=== PATIENT | female | born 1945 | race Hispanic/Latino ===

== ENCOUNTER 2017-07-07 21:46 | Observation (INO) | payer MEDICARE ==
[~2017-07-07] VITALS: Ht 157.5 cm; Wt 68.0 kg
--- OUTSIDE RECORDS SUMMARY | 2017-07-07 21:48 | XMS REPORT ---
Author Author Admin, [place] Organization [facility] Address [address] [place] [address] Phone Allergies, Adverse Reactions, Alerts Allergy Name Reaction Description Start Date Severity Status Provider No Known Allergies Shae Haas Conditions or Problems Problem Name Problem Code Onset Date Status Entry Date Provider Comment Standard Description Annotate High blood pressure 401.9 Active Jyoti Jj MD Unspecified essential hypertension Incontinence, urine 788.30 Active Jyoti Jj MD Urinary incontinence, unspecified Vision changes 368.9 Active Jyoti Jj MD Unspecified visual disturbance Abdominal pain, right lower quadrant 789.03 Active Jyoti Jj MD Abdominal pain, right lower quadrant Vaginal atrophy 627.3 Active Jyoti Jj MD Postmenopausal atrophic vaginitis Cyclosporiasis 007.5 Active Mykel Herrera MD Cyclosporiasis Hx of colon surgery V45.89 Active Jyoti Jj MD Other postsurgical status Hernia of anterior abdominal wall 553.20 Active Arron Chang MD Unspecified ventral hernia without mention of obstruction or gangrene BMI 50.0-59.9 Active Arron Chang MD Body Mass Index 50.0-59.9, adult Conjunctivitis, chronic 372.10 Active Arron Chang MD Chronic conjunctivitis, unspecified medial aspect with swelling of conjunctiva Glaucoma 365.9 Active Ab Barry MD Unspecified glaucoma Breast pain, bilateral 611.71 Active Ab Barry MD Mastodynia Cellulitis, breast 611.0 Active Ab Barry MD Inflammatory disease of breast Left, secondary to surgery Hx of removal of breast implants V52.4 Active Ab Barry MD Fitting and adjustment of breast prosthesis and implant May 2015 in [place] Revision of breast implants V53.99 Active Ab Barry MD Fitting and adjustment of other device January 28 2015 in [place] Blurred vision 368.8 Active Ab Barry MD Other specified visual disturbances Screening mammogram V76.12 Active Ab Barry MD Other screening mammogram Overweight 278.02 Active Arron Chang MD Overweight Vaccine against flu/influenza V04.8 Active Arron Chang MD Need for prophylactic vaccination and inoculation against other viral diseases Conjunctivitis ICD-372.30 Inactive Jyoti Jj MD Need for prophylactic vaccination with unspecified combined vaccine V06.9 Inactive Jessica Paul [employer] B[employer]ER Need for prophylactic vaccination with unspecified combined vaccine Need for prophylactic vaccination with unspecified combined vaccine ICD-V06.9 Inactive Jessica Paul [employer]ER UTI (urinary tract infection) ICD-599.0 Inactive Jyoti Jj MD DIARRHEA ICD-787.91 Inactive Jyoti Jj MD Traveler's diarrhea ICD-009.2 Inactive Jyoti Jj MD Conjunctivitis 372.30 Resolved Jyoti Jj MD Conjunctivitis, unspecified UTI (urinary tract infection) 599.0 Resolved Jyoti Jj MD Urinary tract infection, site not specified DIARRHEA 787.91 Resolved Jyoti Jj MD Diarrhea Traveler's diarrhea 009.2 Resolved Jyoti Jj MD Infectious diarrhea Medication List Medication Instructions Start Date Stop Date Generic Name NDC Status Provider Patient Instruction POLYTRIM 06280-0.1 UNIT/ML-% SOLN 1-2 drops in affected eye every 4 hours for 7 to 10 days POLYTRIM 81266-1.1 UNIT/ML-% SOLN 315898 POLYMYXIN B-TRIMETHOPRIM Inactive PREMARIN 0.625 MG/GM CREA 1 gm PV nightly at bedtime 3 times per week PREMARIN 0.625 MG/GM CREA ESTROGENS, CONJUGATED VAGINAL Inactive AUGMENTIN 500-125 MG TABS 1 by mouth twice a day AUGMENTIN 500-125 MG TABS 694934 AMOXICILLIN-POT CLAVULANATE Inactive MONISTAT 3 COMBO PACK MARCELLA 200 & 2 MG-% (9GM) VAG KIT use as directed MONISTAT 3 COMBO PACK MARCELLA 200 & 2 MG-% (9GM) VAG KIT MICONAZOLE NITRATE Inactive BACTRIM DS 800-160 MG TABS 1 tab by mouth twice a day BACTRIM DS 800-160 MG TABS 820774 TRIMETHOPRIM-SULFAMETHOXAZOLE Inactive ZOFRAN ODT 4 MG TBDP Take one tablet every 6 hrs as needed for nausea ZOFRAN ODT 4 MG TBDP 439839 ONDANSETRON Inactive BENTYL 10 MG CAPS 1 by mouth 4 times a day as needed BENTYL 10 MG CAPS 117714 DICYCLOMINE HCL Inactive CIPRO 500 MG TABS 1 by mouth twice a day for 3 days CIPRO 500 MG TABS 103998 CIPROFLOXACIN HCL Inactive BACTRIM DS 800-160 MG TABS 1 tab by mouth twice a day BACTRIM DS 800-160 MG TABS 121476 TRIMETHOPRIM-SULFAMETHOXAZOLE Inactive CLEOCIN 300 MG ORAL CAPS 1 tab By Mouth Every 6 hour for 14 days for breast infection CLEOCIN 300 MG ORAL CAPS 327083 CLINDAMYCIN HCL Inactive POLYTRIM 03059-8.1 UNIT/ML-% SOLN 1-2 drops in affected eye every 4 hours for 7 to 10 days POLYMYXIN B-TRIMETHOPRIM 14532668099 No Longer Active Jyoti Jj MD Active PREMARIN 0.625 MG/GM CREA 1 gm PV nightly at bedtime 3 times per week ESTROGENS, CONJUGATED VAGINAL 90109479194 No Longer Active Jyoti Jj MD Active AUGMENTIN 500-125 MG TABS 1 by mouth twice a day AMOXICILLIN-POT CLAVULANATE 98996028829 No Longer Active Jyoti Jj MD Active MONISTAT 3 COMBO PACK MARCELLA 200 & 2 MG-% (9GM) VAG KIT use as directed MICONAZOLE NITRATE 41412758829 No Longer Active Jyoti Jj MD Active BACTRIM DS 800-160 MG TABS 1 tab by mouth twice a day TRIMETHOPRIM-SULFAMETHOXAZOLE 92651965643 No Longer Active Annalee Wise MD Active ZOFRAN ODT 4 MG TBDP Take one tablet every 6 hrs as needed for nausea ONDANSETRON 32688127720 No Longer Active Jyoti Jj MD Active BENTYL 10 MG CAPS 1 by mouth 4 times a day as needed DICYCLOMINE HCL 98399297739 No Longer Active Jyoti Jj MD Active CIPRO 500 MG TABS 1 by mouth twice a day for 3 days CIPROFLOXACIN HCL 35985475989 No Longer Active Jyoti Jj MD Active BACTRIM DS 800-160 MG TABS 1 tab by mouth twice a day TRIMETHOPRIM-SULFAMETHOXAZOLE 83392092025 No Longer Active Toshia Ramos MD Active CLEOCIN 300 MG ORAL CAPS 1 tab By Mouth Every 6 hour for 14 days for breast infection CLINDAMYCIN HCL 48376211065 No Longer Active Toshia Ramos MD Active Immunizations Vaccine Administration Date Value Standard Description influenza immunization (Flu Vax) has been administered given influenza virus vaccine, unspecified formulation PEDIATRIC PNEUMOCOCCAL VACCINE ([id number]) #1 given elsewhere pneumococcal conjugate vaccine, 13 valent hepatitis A immunization #1 given hepatitis A vaccine, unspecified formulation MMR (measles, mumps, rubella) virus immunization #1 given influenza immunization (Flu Vax) has been administered given influenza virus vaccine, unspecified formulation Vital Signs Date Name Value Unit Range Description blood pressure, diastolic 92 mm[Hg] BP lua blood pressure, systolic 166 mm[Hg] BP sys height E&M 62 [in_us] Bdy height pulse rate E&M 70 /min Heart rate respiratory rate E&M 16 /min Resp rate temperature E&M 98.3 [degF] Body temperature weight E&M 163.60 [lb_av] Weight Measured blood pressure, diastolic 90 mm[Hg] BP lua blood pressure, systolic 168 mm[Hg] BP sys height E&M 62 [in_us] Bdy height pulse rate E&M 65 /min Heart rate respiratory rate E&M 19 /min Resp rate temperature E&M 98.4 [degF] Body temperature weight E&M 162.60 [lb_av] Weight Measured blood pressure, diastolic 75 mm[Hg] BP lua blood pressure, systolic 126 mm[Hg] BP sys height E&M 62 [in_us] Bdy height pulse rate E&M 65 /min Heart rate respiratory rate E&M 18 /min Resp rate temperature E&M 97.0 [degF] Body temperature weight E&M 148.80 [lb_av] Weight Measured blood pressure, diastolic 73 mm[Hg] BP lua blood pressure, systolic 116 mm[Hg] BP sys height E&M 62 [in_us] Bdy height pulse rate E&M 67 /min Heart rate respiratory rate E&M 17 /min Resp rate temperature E&M 98.0 [degF] Body temperature weight E&M 144.80 [lb_av] Weight Measured Diagnostic Results Date Name Value Unit Range Description Office Visit: Adult Followup///# 5_Ginoler - Urinalysis nitrite, urine, semiquantitative negative urobilinogen, urine, semiquantitative (dipstick) negative Lab Report: URINALYSIS, COMPLETE W/REFLEX TO CULTURE, REFLEXIVE URINE CU ... - Urinalysis specific gravity, urine 1.021 1.001-1.035 pH, urine, semiquantitative 5.5 5.0-8.0 Office Visit: Adult Followup///# 5_Ruben - Urinalysis bilirubin, urine negative Lab Report: URINALYSIS, COMPLETE W/REFLEX TO CULTURE, REFLEXIVE URINE CU ... - Urinalysis urine culture Greater than 100,000 CFU/mL of Escherichia coli WBC urine on microscopy 40-60 /HPF {Cells}/[HPF] < OR=5 hyaline casts, urine 0-1 /[LPF] NONE SEEN Office Visit: Adult Followup///# 5_Ruben - Urinalysis leukocyte esterase, urine, by dipstick negative appearance, urine clear Lab Report: URINALYSIS, COMPLETE W/REFLEX TO CULTURE, REFLEXIVE URINE CU ... - Chemistry RBC, Urine 0-2 /HPF /[HPF] < OR=2 Office Visit: Adult Followup///# 5_Ruben - Urinalysis protein, urine, semiquantitative (dipstick) negative blood in urine (hemoglobin) by dipstick negative glucose, urine, semiquantitative negative Lab Report: URINALYSIS, COMPLETE W/REFLEX TO CULTURE, REFLEXIVE URINE CU ... - Chemistry occult blood, stool (E&M) 1+ NEGATIVE Lab Report: URINALYSIS, COMPLETE W/REFLEX TO CULTURE, REFLEXIVE URINE CU ... - Urinalysis bacteria, urine microscopy MODERATE NONE SEEN Lab Report: URINALYSIS, COMPLETE W/REFLEX TO CULTURE, REFLEXIVE URINE CU ... 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 Est Patient Exp Problem - 13324 Kirsten Miranda MD CPT -29372 [facility] 15:33:34 CDT Est Patient Exp Problem - 49751 Mykel Herrera MD CPT-11777 [facility] 17:13:04 CDT Est Patient Exp Problem - 11053 Jyoti Jj MD CPT-43334 [facility] 11:26:32 CDT Est Patient Exp Problem - 51568 Ab Barry MD CPT-75477 [facility] 11:16:28 CDT Est Patient Exp Problem - 59629 Arron Chang MD CPT- 21688 [facility] 14:30:05 CDT Est Patient Exp Problem - 82438 Arron Chang MD CPT- 95150 [facility] 15:10:34 CDT Est Patient Exp Problem - 58253 Ab Barry MD CPT-04444 [facility] 15:43:57 CDT Est Patient Exp Problem - 90914 Ab Barry MD CPT-58207 [facility] 09:41:48 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 DIGGER Est Patient Exp Problem - 33146 Ab Barry MD CPT-40989 [facility] 07:24:40 TRENCH DIGGER Est Patient Exp Problem - 35170 Ab Barry MD CPT-19181 [facility] 15:47:56 CDT Est Patient Exp Problem - 45764 Ab Barry MD CPT-87260 [facility] 16:49:51 CDT Est Patient Exp Problem - 44846 Arron Chang MD CPT- 60568 [facility] Procedures Code Procedure Name Date Entry Date Standard Description CPT-89268 Urinalysis - Dip only - In House 10:57:08 CDT CPT-77090 MEASLES & RUBELLA VIRUS VACCINE LIVE SUBQ 09:49:07 TRENCH DIGGER CPT-75487 Hepatitis A - Adult 09:49:07 TRENCH DIGGER CPT-64388 Admin of Vaccine - Injection - Each Add'l 09:49:07 TRENCH DIGGER CPT-68175 Admin of Vaccine - Injection - 1 09:49:07 TRENCH DIGGER CPT-86099 Influenza - Adult - Injection 16:49:51 CDT
[2017-07-07 22:14] LABS: BASOPHILS # (AUTO) 0.1 (0.0-0.1); BASOPHILS % 0.6 % (0.0-1.0); EOSINOPHILS # (AUTO) 0.2 (0.0-0.4); EOSINOPHILS % 2.7 % (0.0-6.0); HEMATOCRIT 41.8 % (34.2-44.1); HEMOGLOBIN 14.3 g/dL (12.0-16.0); LYMPHOCYTES # (AUTO) 2.8 (1.0-3.2); MEAN CORPUSCULAR HEMOGLOBIN 30.9 pg (28-32); MEAN CORPUSCULAR HGB CONC 34.2 g/dL (31-35); MEAN CORPUSCULAR VOLUME 90.3 fL (81-99); MONOCYTES # (AUTO) 0.6 (0.2-0.8); MONOCYTES % 7.5 % (4.4-11.3); NEUTROPHILS # (AUTO) 4.1 (2.1-6.9); NEUTROPHILS % 52.9 % (38.7-80.0); PLATELET COUNT 269 x10e3/uL (140-360); RED BLOOD COUNT 4.63 x10e6/uL (3.6-5.1); RED CELL DISTRIBUTION WIDTH 12.3 % (11.7-14.4)
[2017-07-07] MEDS ORDERED: NITROGLYCERIN 2% OINT 1 GM PKT TOP ONE (22:15)
[2017-07-07] MEDS ORDERED: ASPIRIN 81 MG CHEW TAB PO ONE (22:15)
[2017-07-07 22:18] LABS: INR 0.99; PROTHROMBIN TIME 12.3 seconds (11.9-14.5)
[2017-07-07 22:19] LABS: PARTIAL THROMBOPLASTIN TIME 29.3 seconds (23.8-35.5)
[2017-07-07 22:29] LABS: ALANINE AMINOTRANSFERASE 46 IU/L (0-55); ALBUMIN 4.2 g/dL (3.5-5.0); ALBUMIN/GLOBULIN RATIO 1.2 (0.8-2.0); ALKALINE PHOSPHATASE 89 IU/L (40-150); ANION GAP 15.1 mmol/L (8-16); BLOOD UREA NITROGEN 18 mg/dL (7-26); BUN/CREATININE RATIO 18 (6-25); CALCIUM 9.7 mg/dL (8.4-10.2); CARBON DIOXIDE 25 mmol/L (22-29); CHLORIDE 100 mmol/L (98-107); CREATINE KINASE 54 IU/L (29-168); CREATININE, SERUM 0.98 mg/dL (0.57-1.11); EST GLOMERULAR FILTRATION RATE 56 ML/MIN (60-); GLUCOSE 321 mg/dL (74-118); POTASSIUM 4.1 mmol/L (3.5-5.1); SODIUM 136 mmol/L (136-145)
--- NOTE | 2017-07-07 22:47 | Diagnostic Imaging Report ---
EXAMINATION: CHEST 2 VIEWS INDICATION: Chest pain. COMPARISON: None FINDINGS: TUBES and LINES: None. LUNGS: Lungs are well inflated. Lungs are clear. There is no evidence of pneumonia or pulmonary edema. PLEURA: No pleural effusion or pneumothorax. HEART AND MEDIASTINUM: The cardiomediastinal silhouette is unremarkable. BONES AND SOFT TISSUES: No acute osseous lesion. Soft tissues are unremarkable. UPPER ABDOMEN: No free air under the diaphragm. There are cholecystectomy clips. IMPRESSION: No acute thoracic abnormality. Signed by: Dr. Darrin Resendiz M.D. on 07/07/2017 10:44 PM
[2017-07-07 22:50] LABS: FREE THYROXINE INDEX 1.7331 (1.4-3.8); THYROID STIMULATING HORMONE 3.572 uIU/mL (0.350-4.940)
--- OUTSIDE RECORDS SUMMARY | 2017-07-07 23:28 | XMS REPORT ---
Author Author [facility] Address Unknown Phone Unavailable Care Team Providers Care Uniformer Name Role Phone LIZABETH DODD Unavailable Unavailable Problems This patient has no known problems. Allergies, Adverse Reactions, Alerts This patient has no known allergies or adverse reactions. Medications This patient has no known medications. Results Test Description Test Time Test Comments Text Results Atomic Results Result Comments CHEST 2 VIEWS [place] [address] Patient Name: FENG RODARTE MR #: [id number] : 1945 Age/Sex: 71/F Req # : [id number] Adm Physician: Ordered by: LIZABETH DODD MD Report # : [id number] Location: ER Room/Bed: Procedure: [id number] DX/CHEST 2 VIEWS Exam Date: 07/07/17 Exam Time : 0 REPORT STATUS: Signed EXAMINATION: CHEST 2 VIEWS INDICATION: Chest pain. COMPARISON: None FINDINGS: TUBES and LINES: None. LUNGS: Lungs are well inflated. Lungs are clear. There is no evidence of pneumonia or pulmonary edema. PLEURA: No pleural effusion or pneumothorax. HEART AND MEDIASTINUM: The cardiomediastinal silhouette is unremarkable. BONES AND SOFT TISSUES: No acute osseous lesion. Soft tissues are unremarkable. UPPER ABDOMEN: No free air under the diaphragm. There are cholecystectomy clips. IMPRESSION: No acute thoracic abnormality. Signed by: Dr. Darrin Resendiz M.D. on 07/07/2017 10:44 PM Dictated By: DARRIN ANDERSEN MD 45 Transcribed By: LILI on 07/07/172243 COPY TO: LIZABETH DODD MD
--- OUTSIDE RECORDS SUMMARY | 2017-07-07 23:28 | XMS REPORT ---
Author Author Admin, [place] Organization [facility] Address [address] [place] [address] Phone Allergies, Adverse Reactions, Alerts Allergy Name [...] breast prosthesis and implant May 2015 in [place] Revision of breast implants V53.99 Active Ab Barry MD Fitting and adjustment of other device January 28 2015 in [place] Blurred vision 368.8 Active Ab Barry MD [...] unspecified combined vaccine V06.9 Inactive Jessica Paul [employer] Need for prophylactic vaccination with unspecified combined vaccine Need for prophylactic vaccination with unspecified combined vaccine ICD-V06.9 Inactive Jessica Paul [employer] UTI (urinary tract infection) ICD-599.0 Inactive Jyoti [...] Name NDC Status Provider Patient Instruction POLYTRIM 97001-5.1 UNIT/ML-% SOLN 1-2 drops in affected eye every 4 hours for 7 to 10 days POLYTRIM 85278-6.1 UNIT/ML-% SOLN 069750 POLYMYXIN B-TRIMETHOPRIM Inactive PREMARIN 0.625 MG/GM CREA 1 gm PV nightly at bedtime 3 times per week PREMARIN 0.625 MG/GM CREA ESTROGENS, CONJUGATED VAGINAL Inactive AUGMENTIN 500-125 MG TABS 1 by mouth twice a day AUGMENTIN 500-125 MG TABS 989146 AMOXICILLIN-POT CLAVULANATE Inactive MONISTAT 3 COMBO PACK MARCELLA 200 & 2 MG-% (9GM) VAG KIT use as directed MONISTAT 3 COMBO PACK MARCELLA 200 & 2 MG-% (9GM) VAG KIT MICONAZOLE NITRATE Inactive BACTRIM DS 800-160 MG TABS 1 tab by mouth twice a day BACTRIM DS 800-160 MG TABS 432982 TRIMETHOPRIM-SULFAMETHOXAZOLE Inactive ZOFRAN ODT 4 MG TBDP Take one tablet every 6 hrs as needed for nausea ZOFRAN ODT 4 MG TBDP 143801 ONDANSETRON Inactive BENTYL 10 MG CAPS 1 by mouth 4 times a day as needed BENTYL 10 MG CAPS 552545 DICYCLOMINE HCL Inactive CIPRO 500 MG TABS 1 by mouth twice a day for 3 days CIPRO 500 MG TABS 804685 CIPROFLOXACIN HCL Inactive BACTRIM DS 800-160 MG TABS 1 tab by mouth twice a day BACTRIM DS 800-160 MG TABS 298338 TRIMETHOPRIM-SULFAMETHOXAZOLE Inactive CLEOCIN 300 MG ORAL CAPS 1 tab By Mouth Every 6 hour for 14 days for breast infection CLEOCIN 300 MG ORAL CAPS 164204 CLINDAMYCIN HCL Inactive POLYTRIM 80241-5.1 UNIT/ML-% SOLN 1-2 drops in affected eye every 4 hours for 7 to 10 days POLYMYXIN B-TRIMETHOPRIM 57700059179 No Longer Active Joyti Jj MD Active PREMARIN 0.625 MG/GM CREA 1 gm PV nightly at bedtime 3 times per week ESTROGENS, CONJUGATED VAGINAL 77824432409 No Longer Active Jyoti Jj MD Active AUGMENTIN 500-125 MG TABS 1 by mouth twice a day AMOXICILLIN-POT CLAVULANATE 39617431630 No Longer Active Jyoti Jj MD Active MONISTAT 3 COMBO PACK MARCELLA 200 & 2 MG-% (9GM) VAG KIT use as directed MICONAZOLE NITRATE 40749710833 No Longer Active Jyoti Jj MD Active BACTRIM DS 800-160 MG TABS 1 tab by mouth twice a day TRIMETHOPRIM-SULFAMETHOXAZOLE 21377641636 No Longer Active Annalee Wise MD Active ZOFRAN ODT 4 MG TBDP Take one tablet every 6 hrs as needed for nausea ONDANSETRON 81340480777 No Longer Active Jyoti Jj MD Active BENTYL 10 MG CAPS 1 by mouth 4 times a day as needed DICYCLOMINE HCL 86304879745 No Longer Active Jyoti Jj MD Active CIPRO 500 MG TABS 1 by mouth twice a day for 3 days CIPROFLOXACIN HCL 39451546979 No Longer Active Jyoti Jj MD Active BACTRIM DS 800-160 MG TABS 1 tab by mouth twice a day TRIMETHOPRIM-SULFAMETHOXAZOLE 29363996982 No Longer Active Toshia Ramos MD Active CLEOCIN 300 MG ORAL CAPS 1 tab By Mouth Every 6 hour for 14 days for breast infection CLINDAMYCIN HCL 42434638152 No Longer Active Toshia Ramos MD Active Immunizations Vaccine Administration Date Value Standard Description influenza immunization (Flu Vax) has been administered given influenza virus vaccine, unspecified formulation PEDIATRIC PNEUMOCOCCAL VACCINE ([id number]) #1 given elsewhere pneumococcal conjugate vaccine, 13 [...] Facility 13:05:49 CDT Est Patient Detailed - 28146 Jyoti Jj MD CPT- 39818 [facility] 11:45:37 CDT Est Patient Exp Problem - 11863 Jyoti Jj MD CPT-90284 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 15:33:34 CDT Est Patient Exp Problem - 99949 Mykel Herrera MD CPT-40798 [facility] 17:13:04 CDT Est Patient Exp Problem - 04112 Jyoti Jj MD CPT-97269 [facility] 11:26:32 CDT Est Patient Exp Problem - 38252 Ab Barry MD CPT-32129 [facility] 11:16:28 CDT Est Patient Exp Problem - 93996 Arron Chang MD CPT- 96229 [facility] 14:30:05 CDT Est Patient Exp Problem - 55501 Arron Chang MD CPT- 50853 [facility] 15:10:34 CDT Est Patient Exp Problem - 04957 Ab Barry MD CPT-68938 [facility] 15:43:57 CDT Est Patient Exp Problem - 06986 Ab Barry MD CPT-79931 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 15:47:56 CDT Est Patient Exp Problem - 03423 Ab Barry MD CPT-29598 [facility] 16:49:51 CDT Est Patient Exp Problem - 95327 Arron Chang MD CPT- 32713 [facility] Procedures Code Procedure Name Date Entry Date Standard Description CPT-80160 Urinalysis - Dip only - In House 10:57:08 CDT CPT-37715 MEASLES & RUBELLA VIRUS VACCINE LIVE SUBQ 09:49:07 HEAT PUMP INSTALLER CPT-10368 Hepatitis A - Adult 09:49:07 HEAT PUMP INSTALLER CPT-21753 Admin of Vaccine - Injection - Each Add'l 09:49:07 HEAT PUMP INSTALLER CPT-68469 Admin of Vaccine - Injection - 1 09:49:07 HEAT PUMP INSTALLER CPT-56778 Influenza - Adult - Injection 16:49:51 CDT
[2017-07-07] MEDS ORDERED: DEXTROSE 50% SYRINGE 50 ML IV PRN (23:30)
[2017-07-07] MEDS ORDERED: SODIUM CHLORIDE FLUSH 10 ML SYR INJ PRN (23:30)
[2017-07-07] MEDS ORDERED: ONDANSETRON HCL INJ 2 MG/ML VIAL IV PRN (23:30)
[2017-07-07 23:40] VITALS: BP 126/60
[2017-07-08] VITALS: BP 126/60
[2017-07-08 04:00] VITALS: BP 122/57
[2017-07-08] MEDS: NITROGLYCERIN 2% OINT 1 GM PKT TOP SCH ×4 (05:57→17:29)
[2017-07-08 06:38] LABS: BASOPHILS % 0.4 % (0.0-1.0); EOSINOPHILS # (AUTO) 0.2 (0.0-0.4); EOSINOPHILS % 2.4 % (0.0-6.0); HEMATOCRIT 37.2 % (34.2-44.1); HEMOGLOBIN 12.5 g/dL (12.0-16.0); LYMPHOCYTES # (AUTO) 1.8 (1.0-3.2); LYMPHOCYTES % 21.6 % (18.0-39.1); MEAN CORPUSCULAR HEMOGLOBIN 30.5 pg (28-32); MEAN CORPUSCULAR HGB CONC 33.6 g/dL (31-35); MEAN CORPUSCULAR VOLUME 90.7 fL (81-99); MONOCYTES # (AUTO) 0.6 (0.2-0.8); MONOCYTES % 7.1 % (4.4-11.3); NEUTROPHILS # (AUTO) 5.8 (2.1-6.9); NEUTROPHILS % 68.3 % (38.7-80.0); PLATELET COUNT 218 x10e3/uL (140-360); RED CELL DISTRIBUTION WIDTH 12.4 % (11.7-14.4)
[2017-07-08 07:35] LABS: ALANINE AMINOTRANSFERASE 38 IU/L (0-55); ALBUMIN 3.4 g/dL (3.5-5.0); ALBUMIN/GLOBULIN RATIO 1.1 (0.8-2.0); ALKALINE PHOSPHATASE 65 IU/L (40-150); ANION GAP 13.6 mmol/L (8-16); BLOOD UREA NITROGEN 15 mg/dL (7-26); BUN/CREATININE RATIO 19 (6-25); CALCIUM 8.8 mg/dL (8.4-10.2); CARBON DIOXIDE 24 mmol/L (22-29); CHLORIDE 104 mmol/L (98-107); CREATINE KINASE 35 IU/L (29-168); EST GLOMERULAR FILTRATION RATE > 60 ML/MIN (60-); GLUCOSE 329 mg/dL (74-118); POTASSIUM 4.6 mmol/L (3.5-5.1); SODIUM 137 mmol/L (136-145)
[2017-07-08] MEDS: INSULIN REGULAR, HUMAN 100 UNIT/1 ML 3ML VIAL SQ SCH ×3 (08:18→17:30)
[2017-07-08] MEDS ORDERED: ASPIRIN 81 MG ENTERIC COATED PO SCH (09:00)
[2017-07-08 09:32] VITALS: BP 141/77
[2017-07-08 11:40] VITALS: BP 132/60
--- NOTE | 2017-07-08 12:56 | Consultation ---
DATE OF CONSULTATION: July 08, 2017 CARDIOLOGY CONSULTATION REQUESTING PHYSICIAN: Dr. Tenzin Stone. REASON FOR CONSULTATION: Chest pain. HISTORY OF PRESENT ILLNESS: This is a 71-year-old woman with history of hypertension, newly diagnosed diabetes mellitus, and reported history of probably atrial fibrillation for which patient was previously on flecainide, who presents with complaints of chest pain. The patient reports she has been feeling off for the last 3 to 4 months with palpitations associated with shortness of breath off and on. Then 2 days ago, she noticed left arm burning that was 8/10 in severity. Yesterday, she developed chest pressure on the left side while walking. This was 10/10 in severity associated with shortness of breath. There was no nausea or diaphoresis. The pain lasted an hour and was improved with nitro patch. She denies fever, chills, cough, edema, orthopnea, or PND. REVIEW OF SYSTEMS: Negative except as per HPI. PAST MEDICAL HISTORY 1. Newly diagnosed diabetes mellitus. 2. Hypertension. 3. Reported prior history of tachycardia per patient's description likely atrial fibrillation, for which she was followed by Dr. Bear on flecainide. 4. GERD. 5. Diverticulitis. PAST SURGICAL HISTORY 1. section. 2. Cholecystectomy. 3. Hysterectomy. 4. Tonsillectomy. 5. Partial colectomy for diverticulitis. 6. Bladder lift. 7. Tummy tuck and breast reduction. ALLERGIES: NO KNOWN DRUG ALLERGIES. SOCIAL HISTORY: No tobacco or illicit drugs. She drinks alcohol occasionally. MEDICATIONS: Please see EMR. FAMILY HISTORY: Pertinent for brother who of a myocardial infarction at the age of 63. PHYSICAL EXAMINATION VITAL SIGNS: Temperature 97.1 degrees, pulse 82, respiratory rate 16, blood pressure 122/57, oxygen saturation 93% on room air. GENERAL: Well-developed, well-nourished woman, in no acute distress. HEENT: Normocephalic and atraumatic. Pupils equal. No scleral icterus. NECK: Supple. No thyromegaly or cervical lymphadenopathy. No carotid bruit. LUNGS: Clear to auscultation bilaterally. No wheezes or crackles. CARDIOVASCULAR: Normal rate, regular rhythm. No murmur. Normal S1 and S2. ABDOMEN: Soft, nontender. EXTREMITIES: No edema. NEURO: Nonfocal exam. LABS: WBC 8.5, hemoglobin 12.5, hematocrit 37.2, platelets 218. Sodium 137, potassium 4.6, chloride 104, CO2 of 24, BUN 16, creatinine 0.8. Hemoglobin A1c 11.9. Troponin 0.004. Chest x-ray, no acute thoracic abnormality. EKG, normal sinus rhythm, possible left atrial enlargement, inferior infarct age-indeterminate. Echocardiogram, normal LV size and systolic function with mild LVH. Left atrial enlargement was noted. IMPRESSION 1. Chest pain. 2. Suspected history of atrial fibrillation. 3. Hypertension. 4. Newly diagnosed diabetes mellitus. RECOMMENDATIONS: Trend cardiac enzymes. Given the patient's risk factors, we will proceed with ischemic evaluation with treadmill nuclear stress test. No atrial fibrillation has been noted on telemetry or on EKG. She will need to follow up as an outpatient for 2 weeks telemetry monitoring for further evaluation of this suspected atrial fibrillation. Given her risk factors, anticoagulation was discussed with the patient; however, she is reluctant to be placed on anticoagulation. As we have not confirmed AFib at this time, hold off for now. Thank you for this consult. We will continue to follow. Job#: [id number] MELINDA
[2017-07-08 13:29] LABS: CHOL/HDL RATIO 4.2 (3.0-3.6); CHOLESTEROL 150 MD/DL (0-199); HDL CHOLESTEROL 36 MG/DL (40-60); LDL CHOLESTEROL 98 MG/DL (60-130); TRIGLYCERIDES 79 MG/DL (0-149)
[2017-07-08 15:02] LABS: CREATINE KINASE 36 IU/L (29-168)
[2017-07-08 16:00] VITALS: BP 140/62
[2017-07-08] MEDS ORDERED: METFORMIN HCL 500 MG TAB PO SCH (17:00)
[2017-07-08] MEDS ORDERED: METFORMIN HCL500 MG PO (18:45)
[2017-07-08] MEDS ORDERED: JANUVIA100 MG PO (18:45)
--- NOTE | 2017-07-09 00:17 | Cardiology Report ---
DATE OF STUDY: July 08, 2017 PROCEDURE TITLE Rest stress single isotope SPECT imaging with exercise stress and gated SPECT imaging. INDICATIONS: Chest pain. PROCEDURE: The patient performed treadmill exercise using a Raji protocol, exercising for 8 minutes to stage III and completing estimated work load of 10.1 metabolic equivalents. The test was terminated due to fatigue. The heart rate was 94 beats per minute at baseline and increased to 138 beats per minute at peak exercise, which was 91% of maximum predicted heart rate. The rest blood pressure was 146/80 and increased to 160/60, which is a normal response. Patient did not develop any symptoms other than fatigue during the procedure. The resting electrocardiogram demonstrated normal sinus rhythm with nonspecific ST abnormalities. There were no ST segment changes consistent with myocardial ischemia. Myocardial perfusion imaging was performed at rest and the patient was injected with 33 millicuries of tetrofosmin. Exercise was continued for one minute. Gated post stress tomographic imaging was performed. FINDINGS: The overall quality of study is good. Attenuation artifact was absent. Left ventricular cavity is noted to be normal size on the rest and stress studies. SPECT images demonstrate homogenous tracer distribution throughout the myocardium. The gated SPECT imaging reveals normal myocardial thickening and wall motion. The left ventricular ejection fraction was calculated to be 66%. IMPRESSION: Normal clinical and hemodynamic exercise stress with nondiagnostic ECG exercise stress is due to resting EKG abnormalities. Myocardial perfusion imaging is normal. Overall, left ventricular systolic function was normal without regional wall motion abnormalities. Job#: [id number] GH cc: LUIS SARABIA MD MTDD
[2017-07-09] MEDS ORDERED: SITAGLIPTIN 100 MG TAB PO SCH (09:00)
== END 2017-07-08 19:14 | disposition home or self-care (01) ==
LOC: ER 21:46 → ERHOLD 23:25 → MED/SURG 23:34
DX: R07.89 Other chest pain (principal); E11.65 Type 2 diabetes mellitus with hyperglycemia; I10 Essential (primary) hypertension; K21.9 Gastro-esophageal reflux disease without esophagitis; K57.92 Diverticulitis of intestine, part unspecified, without perforation or abscess without bleeding; R00.0 Tachycardia, unspecified
CPT/HCPCS: 36415 ×2; 71046; 78452; 80053 ×2; 80061; 82550 ×2; 82553 ×2; 82948; 83036; 84436; 84443; 84479; 84484 ×2; 85025 ×2; 85379; 85610; 85730; 93005; 93017; 93306; 99284; A9502; G0378 ×2

== ENCOUNTER → 2017-08-08 | Outpatient (CLI) | payer MEDICARE ==
[~2017-08-08] MED LIST: JANUVIA100 MG PO; METFORMIN HCL500 MG PO
[2017-08-08 10:11] LABS: BASOPHILS % 0.8 % (0.0-1.0); EOSINOPHILS # (AUTO) 0.1 (0.0-0.4); EOSINOPHILS % 1.9 % (0.0-6.0); HEMATOCRIT 42.3 % (34.2-44.1); HEMOGLOBIN 14.2 g/dL (12.0-16.0); LYMPHOCYTES # (AUTO) 1.8 (1.0-3.2); LYMPHOCYTES % 34.4 % (18.0-39.1); MEAN CORPUSCULAR HEMOGLOBIN 30.9 pg (28-32); MEAN CORPUSCULAR HGB CONC 33.6 g/dL (31-35); MONOCYTES # (AUTO) 0.4 (0.2-0.8); MONOCYTES % 7.6 % (4.4-11.3); NEUTROPHILS # (AUTO) 2.8 (2.1-6.9); NEUTROPHILS % 54.9 % (38.7-80.0); PLATELET COUNT 279 x10e3/uL (140-360); RED CELL DISTRIBUTION WIDTH 12.5 % (11.7-14.4)
[2017-08-08 10:33] LABS: ALANINE AMINOTRANSFERASE 38 IU/L (0-55); ALBUMIN 4.1 g/dL (3.5-5.0); ALBUMIN/GLOBULIN RATIO 1.1 (0.8-2.0); ALKALINE PHOSPHATASE 57 IU/L (40-150); ANION GAP 11.4 mmol/L (8-16); BLOOD UREA NITROGEN 15 mg/dL (7-26); BUN/CREATININE RATIO 18 (6-25); CARBON DIOXIDE 28 mmol/L (22-29); CHLORIDE 108 mmol/L (98-107); CHOL/HDL RATIO 3.6 (3.0-3.6); CHOLESTEROL 169 MD/DL (0-199); CREATININE, SERUM 0.84 mg/dL (0.57-1.11); EST GLOMERULAR FILTRATION RATE > 60 ML/MIN (60-); GLUCOSE 152 mg/dL (74-118); HDL CHOLESTEROL 47 MG/DL (40-60); LDL CHOLESTEROL 106 MG/DL (60-130); POTASSIUM 5.4 mmol/L (3.5-5.1); SODIUM 142 mmol/L (136-145); TRIGLYCERIDES 82 MG/DL (0-149)
[2017-08-08 10:55] LABS: FREE T4 (FREE THYROXINE) 1.01 ng/dL (0.9-1.8); THYROID STIMULATING HORMONE 1.519 uIU/mL (0.350-4.940)
== END | disposition home or self-care (01) ==
LOC: LAB 09:38
PROVIDERS: ATTEND Internal Medicine Endocrinology, Diabetes & Metabolism
DX: E11.9 Type 2 diabetes mellitus without complications (principal); E78.5 Hyperlipidemia, unspecified; I10 Essential (primary) hypertension; E55.9 Vitamin D deficiency, unspecified
CPT/HCPCS: 36415; 80053; 80061; 82306; 84439; 84443; 85025; 86337

== ENCOUNTER → 2018-06-19 | Day surgery (SDC) | payer MEDICARE ==
[2018-06-16 11:45] LABS: BASOPHILS % 0.7 % (0.0-1.0); EOSINOPHILS # (AUTO) 0.7 (0.0-0.4); EOSINOPHILS % 11.3 % (0.0-6.0); HEMATOCRIT 39.2 % (34.2-44.1); HEMOGLOBIN 12.8 g/dL (12.0-16.0); LYMPHOCYTES # (AUTO) 1.6 (1.0-3.2); LYMPHOCYTES % 27.3 % (18.0-39.1); MEAN CORPUSCULAR HEMOGLOBIN 29.6 pg (28-32); MEAN CORPUSCULAR HGB CONC 32.7 g/dL (31-35); MEAN CORPUSCULAR VOLUME 90.5 fL (81-99); MONOCYTES # (AUTO) 0.4 (0.2-0.8); MONOCYTES % 6.4 % (4.4-11.3); NEUTROPHILS # (AUTO) 3.1 (2.1-6.9); NEUTROPHILS % 54.1 % (38.7-80.0); PLATELET COUNT 289 x10e3/uL (140-360); RED BLOOD COUNT 4.33 x10e6/uL (3.6-5.1); RED CELL DISTRIBUTION WIDTH 13.8 % (11.7-14.4)
--- NOTE | 2018-06-16 12:15 | Diagnostic Imaging Report ---
EXAMINATION: CHEST 2 VIEWS INDICATION: Pre-admit. COMPARISON: Chest radiograph 07/07/2017. FINDINGS: TUBES and LINES: None. LUNGS: Lungs are well inflated. Lungs are clear. There is no evidence of pneumonia or pulmonary edema. PLEURA: No pleural effusion or pneumothorax. HEART AND MEDIASTINUM: The cardiomediastinal silhouette is unremarkable. BONES AND SOFT TISSUES: No acute osseous lesion. Soft tissues are unremarkable. UPPER ABDOMEN: No free air under the diaphragm. Status post cholecystectomy. IMPRESSION: No acute radiographic abnormality. Signed by: Dr. Parminder Cox MD on 06/16/2018 12:12 PM
[2018-06-16 12:16] LABS: INR 0.93; PROTHROMBIN TIME 13.3 seconds (11.9-14.5)
[2018-06-16 12:18] LABS: ANION GAP 15.6 mmol/L (8-16); BLOOD UREA NITROGEN 11 mg/dL (7-26); BUN/CREATININE RATIO 14 (6-25); CALCIUM 9.6 mg/dL (8.4-10.2); CARBON DIOXIDE 24 mmol/L (22-29); CHLORIDE 108 mmol/L (98-107); CREATININE, SERUM 0.77 mg/dL (0.57-1.11); EST GLOMERULAR FILTRATION RATE > 60 ML/MIN (60-); GLUCOSE 132 mg/dL (74-118); POTASSIUM 4.6 mmol/L (3.5-5.1); SODIUM 143 mmol/L (136-145)
[~2018-06-19] MED LIST changes: +B COMPLEX1 EACH; +BUPIVACAINE 0.25% 30ML SDV INJ ONE; +CEFAZOLIN SOD 1 GM/NS 50ML 50 ML IV ONE; +DEXAMETHASONE SOD PHOS INJ 4 MG/ML VIAL ONE; +ELIQUIS PO; +FENTANYL CITRATE/PF 100MCG/2 ML INJ ONE; +LIDOCAINE HCL 2% LOCAL INJ 5 ML SDV VIAL INJ ONE; +MAGNESIUM PO; +METFORMIN PO; +NAPROXEN250 MG PO; +ONDANSETRON HCL INJ 2MG/ML 2ML 2 MG/ML VIAL ONE; +PROBIOTIC & AC1 EACH PO; +PROPOFOL IV EMULSION 10 MG/ML 20 ML VIAL ONE; +SEVOFLURANE INHAL SOLN 250 ML PEN BTL ONE; +VITAMIN C500 M3
--- OUTSIDE RECORDS SUMMARY | 2018-06-19 05:34 | XMS REPORT ---
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 Conditions or Problems Problem Name Problem Code Onset Date Status Entry Date Provider Comment Standard Description Annotate Abnormal vaginal bleeding 626.9 Active Jyoti Jj MD Unspecified disorders of menstruation and other abnormal bleeding from female genital tract Atrial fibrillation 427.31 Active Jyoti Jj MD Atrial fibrillation DIARRHEA 787.91 Active Jyoti Jj MD Diarrhea VAGINAL DISCHARGE 623.5 Active Jyoti Jj MD Leukorrhea, not specified as infective PALPITATIONS 785.1 Active Jyoti Jj MD Palpitations Chest pain 786.50 Active Jyoti Jj MD Unspecified chest pain DIABETES MELLITUS, TYPE II 250.00 Active Jyoti Jj MD Diabetes mellitus without mention of complication, type II or unspecified type, not stated as uncontrolled High blood pressure 401.9 Active Jyoti Jj MD Unspecified essential hypertension Incontinence, urine 788.30 Active Jyoti Jj MD Urinary incontinence, unspecified Vision changes 368.9 Active Jyoti Jj MD Unspecified visual disturbance Vaginal atrophy 627.3 Active Jyoti Jj MD Postmenopausal atrophic vaginitis Cyclosporiasis 007.5 Active Mykel Herrera MD Cyclosporiasis Hx of colon surgery V45.89 Active Jyoti Jj MD Other postsurgical status Hernia of anterior abdominal wall 553.20 Active Arron Chnag MD Unspecified ventral hernia without mention of [...] breast prosthesis and implant May 2015 in [place] Revision of breast implants V53.99 Active Ab Barry MD Fitting and adjustment of other device January 28 2015 in [place] Blurred vision 368.8 Active Ab Barry MD Other specified visual disturbances Screening mammogram V76.12 Active Ab Barry MD Other screening mammogram Overweight 278.02 Active Arron Chang MD Overweight Vaccine against flu/influenza V04.8 Active Arron Chang MD Need for prophylactic vaccination and inoculation against other viral diseases Abdominal pain, right lower quadrant ICD-789.03 Inactive Jyoti Jj MD Conjunctivitis ICD-372.30 Inactive Jyoti Jj MD Need for prophylactic vaccination with unspecified combined vaccine V06.9 Inactive Jessica Paul 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 Need for prophylactic vaccination with unspecified combined vaccine Need for prophylactic vaccination with unspecified combined vaccine ICD-V06.9 Inactive 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 Paul 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 UTI (urinary tract infection) ICD-599.0 Inactive Jyoti Jj MD DIARRHEA ICD-787.91 Inactive Jyoti Jj MD Traveler's diarrhea ICD-009.2 Inactive Joyti Jj MD Abdominal pain, right lower quadrant 789.03 Resolved Jyoti Jj MD Abdominal pain, right lower quadrant Conjunctivitis 372.30 Resolved Jyoti Jj MD Conjunctivitis, unspecified UTI (urinary tract infection) 599.0 Resolved Jyoti Jj MD Urinary tract infection, site not specified DIARRHEA 787.91 Resolved Jyoti Jj MD Diarrhea Traveler's diarrhea 009.2 Resolved Jyoti Jj MD Infectious diarrhea Medication List Medication Instructions Start Date Stop Date Generic Name NDC Status Provider Patient Instruction ELIQUIS 5 MG ORAL TABLET one tablet two times daily APIXABAN 88951321036 Active Jyoti Jj MD Active SOTALOL HCL 160 MG ORAL TABLET one tablet twice daily SOTALOL HCL 83759480882 Active Jyoti Jj MD Active SafetyPay ULTRA 2 W/DEVICE KIT Use as directed to test blood sugar twice daily BLOOD GLUCOSE MONITORING SUPPL 40647728581 Active Irish Feng LVN Active LANCETS Dispense for use in checking fasting blood sugar and 2 hour postprandial bloodsugar three times per day LANCETS 26804765536 Active Jyoti Jj MD Active METFORMIN HCL 1000 MG ORAL TABLET 1 by mouth twice a day METFORMIN HCL 35389072603 Active Yasmin Thompson CPHT Active SafetyPay ULTRA BLUE IN VITRO STRIP Use as directed to test blood sugar twice daily GLUCOSE BLOOD 83796219565 Active Irish Feng LVN Active POLYTRIM 50289-7.1 UNIT/ML-% OPHTHALMIC SOLUTION 1-2 drops in affected eye every 4 hours for 7 to 10 days POLYTRIM 65328-1.1 UNIT/ML-% OPHTHALMIC SOLUTION 843159 POLYMYXIN B-TRIMETHOPRIM Inactive PREMARIN 0.625 MG/GM VAGINAL CREAM 1 gm PV nightly at bedtime 3 times per week PREMARIN 0.625 MG/GM VAGINAL CREAM ESTROGENS, CONJUGATED VAGINAL Inactive AUGMENTIN 500-125 MG ORAL TABLET 1 by mouth twice a day AUGMENTIN 500-125 MG ORAL TABLET 199870 AMOXICILLIN-POT CLAVULANATE Inactive MONISTAT 3 COMBO PACK MARCELLA 200 & 2 MG-% (9GM) VAGINAL KIT use as directed MONISTAT 3 COMBO PACK MARCELLA 200 & 2 MG-% (9GM) VAGINAL KIT MICONAZOLE NITRATE Inactive BACTRIM DS 800-160 MG ORAL TABLET 1 tab by mouth twice a day BACTRIM DS 800-160 MG ORAL TABLET 509936 TRIMETHOPRIM-SULFAMETHOXAZOLE Inactive ZOFRAN ODT 4 MG ORAL TABLET DISINTEGRATING Take one tablet every 6 hrs as needed for nausea ZOFRAN ODT 4 MG ORAL TABLET DISINTEGRATING 952761 ONDANSETRON Inactive BENTYL 10 MG ORAL CAPSULE 1 by mouth 4 times a day as needed BENTYL 10 MG ORAL CAPSULE 141231 DICYCLOMINE HCL Inactive CIPRO 500 MG ORAL TABLET 1 by mouth twice a day for 3 days CIPRO 500 MG ORAL TABLET 195136 CIPROFLOXACIN HCL Inactive BACTRIM DS 800-160 MG ORAL TABLET 1 tab by mouth twice a day BACTRIM DS 800-160 MG ORAL TABLET 647928 TRIMETHOPRIM-SULFAMETHOXAZOLE Inactive CLEOCIN 300 MG ORAL CAPSULE 1 tab By Mouth Every 6 hour for 14 days for breast infection CLEOCIN 300 MG ORAL CAPSULE 410017 CLINDAMYCIN HCL Inactive POLYTRIM 73568-1.1 UNIT/ML-% OPHTHALMIC SOLUTION 1-2 drops in affected eye every 4 hours for 7 to 10 days POLYMYXIN B-TRIMETHOPRIM 81653177376 No Longer Active Jyoti Jj MD Active PREMARIN 0.625 MG/GM VAGINAL CREAM 1 gm PV nightly at bedtime 3 times per week ESTROGENS, CONJUGATED VAGINAL 37871471671 No Longer Active Jyoti Jj MD Active AUGMENTIN 500-125 MG ORAL TABLET 1 by mouth twice a day AMOXICILLIN-POT CLAVULANATE 99863744431 No Longer Active Jyoti Jj MD Active MONISTAT 3 COMBO PACK MARCELLA 200 & 2 MG-% (9GM) VAGINAL KIT use as directed MICONAZOLE NITRATE 49577648680 No Longer Active Jyoti Jj MD Active BACTRIM DS 800-160 MG ORAL TABLET 1 tab by mouth twice a day TRIMETHOPRIM-SULFAMETHOXAZOLE 37463910109 No Longer Active Annalee Wise MD Active ZOFRAN ODT 4 MG ORAL TABLET DISINTEGRATING Take one tablet every 6 hrs as needed for nausea ONDANSETRON 91467848500 No Longer Active Jyoti Jj MD Active BENTYL 10 MG ORAL CAPSULE 1 by mouth 4 times a day as needed DICYCLOMINE HCL 16991515492 No Longer Active Jyoti Jj MD Active CIPRO 500 MG ORAL TABLET 1 by mouth twice a day for 3 days CIPROFLOXACIN HCL 90733697175 No Longer Active Jyoti Jj MD Active BACTRIM DS 800-160 MG ORAL TABLET 1 tab by mouth twice a day TRIMETHOPRIM-SULFAMETHOXAZOLE 38724421116 No Longer Active Toshia Ramos MD Active CLEOCIN 300 MG ORAL CAPSULE 1 tab By Mouth Every 6 hour for 14 days for breast infection CLINDAMYCIN HCL 41662248111 No Longer Active Toshia Ramos MD Active Immunizations Vaccine Administration Date Value Standard Description influenza immunization (Flu Vax) has been administered given influenza virus vaccine, unspecified formulation PEDIATRIC PNEUMOCOCCAL VACCINE ([id number]) #1 given elsewhere pneumococcal conjugate vaccine, 13 valent hepatitis A immunization #1 given hepatitis A vaccine, unspecified formulation MMR (measles, mumps, rubella) virus immunization #1 given influenza immunization (Flu Vax) has been administered given influenza virus vaccine, unspecified formulation Vital Signs Date Name Value Unit Range Description blood pressure, diastolic 76 mm[Hg] BP lua blood pressure, systolic 144 mm[Hg] BP sys height E&M 62 [in_us] Bdy height pulse rate E&M 51 /min Heart rate respiratory rate E&M 17 /min Resp rate temperature E&M 98.0 [degF] Body temperature weight E&M 153 [lb_av] Weight Measured blood pressure, diastolic 83 mm[Hg] BP lua blood pressure, systolic 165 mm[Hg] BP sys height E&M 62 [in_us] Bdy height pulse rate E&M 54 /min Heart rate respiratory rate E&M 18 /min Resp rate temperature E&M 97.8 [degF] Body temperature weight E&M 153.60 [lb_av] Weight Measured blood pressure, diastolic 83 mm[Hg] BP lua blood pressure, systolic 142 mm[Hg] BP sys height E&M 62 [in_us] Bdy height pulse rate E&M 83 /min Heart rate respiratory rate E&M 16 /min Resp rate temperature E&M 97.9 [degF] Body temperature weight E&M 158.80 [lb_av] Weight Measured Diagnostic Results Date Name Value Unit Range Description Lab Report: [facility]Swab Vaginitis Plus (VG+) - Microbiology Neisseria gonorrhoeae DNA probe Negative Negative Lab Report: URINALYSIS, COMPLETE W/REFLEX TO CULTURE, REFLEXIVE URINE CU ... - Urinalysis urine culture Greater than 100,000 CFU/mL of Escherichia coli Lab Report: URINALYSIS, COMPLETE W/REFLEX TO CULTURE, REFLEXIVE URINE CU ... - Chemistry occult blood, stool (E&M) 1+ NEGATIVE Lab Report: Stool Culture, Result, Stool Culture, Result, Stool Culture, ... - Toxicology culture, salmonella and shigella, stool Final report Lab Report: Stool Culture, Result, Stool Culture, Result, Stool Culture, ... - Lab Campybolacter culture, stool or rectal swab Final report Lab Report: URINALYSIS, COMPLETE W/REFLEX TO CULTURE, REFLEXIVE URINE CU ... - Microbiology squamous epithelial cells 0-5 /HPF /[LPF] < OR=5 Lab Report: URINALYSIS, COMPLETE W/REFLEX TO CULTURE, REFLEXIVE URINE CU ... - Urinalysis WBC urine on microscopy 40-60 /HPF {Cells}/[HPF] < OR=5 Office Visit: Adult Followup///# 5_Gabler - Urinalysis protein, urine, semiquantitative (dipstick) negative Lab Report: URINALYSIS, COMPLETE W/REFLEX TO CULTURE, REFLEXIVE URINE CU ... - Chemistry RBC, Urine 0-2 /HPF /[HPF] < OR=2 Office Visit: Adult Followup///# 5_Gabler - Urinalysis leukocyte esterase, urine, by dipstick negative Lab Report: URINALYSIS, COMPLETE W/REFLEX TO CULTURE, REFLEXIVE URINE CU ... - Urinalysis bacteria, urine microscopy MODERATE NONE SEEN specific gravity, urine 1.021 1.001-1.035 Office Visit: Adult Followup///# 5_Gabler - Urinalysis nitrite, urine, semiquantitative negative urine color yellow bilirubin, urine negative Lab Report: Stool Culture, Result, Stool Culture, Result, Stool Culture, ... - Microbiology white blood cells in stool Final report None Seen Office Visit: Adult Followup///# 5_Gabler - Urinalysis glucose, urine, semiquantitative negative Lab Report: [facility] Vaginitis Plus (VG+) - Urinalysis trichomonas vaginalis, urine Negative Negative Lab Report: URINALYSIS, COMPLETE W/REFLEX TO CULTURE, REFLEXIVE URINE CU ... - Urinalysis hyaline casts, urine 0-1 /[LPF] NONE SEEN Lab Report: Stool Culture, Result, Stool Culture, Result, Stool Culture, ... - Toxicology Shiga Toxin EIA Negative Negative Lab Report: [facility]Swab Vaginitis Plus (VG+) - Lab chlamydia DNA probe Negative Negative Office Visit: Acute Visit 10 Parviz - Chemistry blood glucose, random 126 mg/dL Office Visit: Adult Followup///# 5_Ruben - Urinalysis blood in urine (hemoglobin) by dipstick negative appearance, urine clear urobilinogen, urine, semiquantitative (dipstick) negative Lab Report: Stool Culture, Result, Stool Culture, Result, Stool Culture, ... - Serology Clostridium difficile toxin A+B, serum, quantitative Negative Negative Lab Report: URINALYSIS, COMPLETE W/REFLEX TO CULTURE, REFLEXIVE URINE CU ... - Urinalysis pH, urine, semiquantitative 5.5 5.0-8.0 Office Visit: Adult Followup///# 5_Ruben - Urinalysis ketones, urine, by test strip negative Encounters Date Encounter Provider Code Facility 09:01:28 CDT Est Patient Detailed - 82772 Jyoti Jj MD CPT-83500 [facility] 13:10:19 CDT Est Patient Exp Problem - 77864 Jyoti Jj MD CPT-12415 [facility] 12:38:21 CDT Est Patient Exp Problem - 49445 Jyoti Jj MD CPT-09115 [facility] 13:05:49 CDT Est Patient Detailed - 59428 Jyoti Jj MD CPT-40344 [facility] 11:45:37 CDT Est Patient Exp Problem - 48699 Jyoti Jj MD CPT-45546 [facility] 06:25:41 [employer] Est Patient Exp Problem - 02643 Kirsten Miranda MD CPT-60753 [facility] 15:33:34 CDT Est Patient Exp Problem - 12739 Mykel Herrera MD CPT-10690 [facility] 17:13:04 CDT Est Patient Exp Problem - 72313 Jyoti Jj MD CPT-10533 [facility] 11:26:32 CDT Est Patient Exp Problem - 91629 Ab Barry MD CPT-92198 [facility] 11:16:28 CDT Est Patient Exp Problem - 58856 Arron Chang MD CPT-68557 [facility] 14:30:05 CDT Est Patient Exp Problem - 86789 Arron Chang MD CPT-69480 [facility] 15:10:34 CDT Est Patient Exp Problem - 94456 Ab Barry MD CPT-03565 [facility] 15:43:57 CDT Est Patient Exp Problem - 48057 Ab Barry MD CPT-41050 [facility] 09:41:48 [employer] Est Patient Exp Problem - 72524 Ab Barry MD CPT-38904 [facility] 07:24:40 [employer] Est Patient Exp Problem - 03627 Ab Barry MD CPT-50136 [facility] 15:47:56 CDT Est Patient Exp Problem - 84926 Ab Barry MD CPT-31258 [facility] 16:49:51 CDT Est Patient Exp Problem - 69218 Arron Chang MD CPT-82690 [facility] Procedures Code Procedure Name Date Entry Date Standard Description CPT-61327 Urinalysis - Dip only - In House 10:57:08 CDT CPT-16656 MEASLES & RUBELLA VIRUS VACCINE LIVE SUBQ 09:49:07 [employer] CPT-13050 Hepatitis A - Adult 09:49:07 [employer] CPT-02830 Admin of Vaccine - Injection - Each Add'l 09:49:07 [employer] CPT-31761 Admin of Vaccine - Injection - 1 09:49:07 [employer] CPT-79640 Influenza - Adult - Injection 16:49:51 CDT
--- OUTSIDE RECORDS SUMMARY | 2018-06-19 05:34 | XMS REPORT | Continuity of Care Document ---
Author Author [facility] Interface Address Unknown Phone Unavailable Problems Problem Status Onset Date Classification Date Reported Comments Source Plantar fascitis Active 05/29/2018 Diagnosis 05/30/2018 [facility] Heel pain, left Active 05/09/2018 Diagnosis 05/30/2018 [facility] Bone spur of left foot Active 05/09/2018 Diagnosis 05/30/2018 [facility] Heel pain, unspecified Active 05/09/2018 Diagnosis 05/30/2018 [facility] Irritable bowel syndrome Active 04/03/2018 Diagnosis 05/30/2018 [facility] JENNIFER Active 02/10/2018 [place] I48.0 Active 02/08/2018 [facility] CCL/ EPS PCI ABLATION W/ CARTO / GA Active 02/08/2018 [facility] Atrial fibrillation Active 01/19/2018 Diagnosis 05/30/2018 [facility] Abnormal vaginal bleeding Active 01/19/2018 Diagnosis 05/30/2018 [facility] VAGINAL DISCHARGE Active 01/19/2018 Diagnosis 05/30/2018 [facility] PALPITATIONS Active 10/17/2017 Diagnosis 05/30/2018 [facility] DIABETES MELLITUS, TYPE II Active 07/11/2017 Diagnosis 05/30/2018 [facility] Chest pain Active 07/11/2017 Diagnosis 05/30/2018 [facility] Incontinence, urine Active 11/05/2016 Diagnosis 05/30/2018 [facility] Vision changes Active 11/05/2016 Diagnosis 05/30/2018 [facility] High blood pressure Active 11/05/2016 Diagnosis 05/30/2018 [facility] Vaginal atrophy Active 10/18/2016 Diagnosis 05/30/2018 [facility] Conjunctivitis Inactive 10/18/2016 Problem 05/30/2018 [facility] Abdominal pain, right lower quadrant Inactive 10/18/2016 Problem 05/30/2018 [facility] Need for prophylactic vaccination with unspecified combined vaccine Inactive 06/09/2016 Problem 05/30/2018 [facility] UTI Inactive 03/08/2016 Problem 05/30/2018 [facility] Cyclosporiasis Active 03/01/2016 Diagnosis 05/30/2018 [facility] Hx of colon surgery Active 02/10/2016 Diagnosis 05/30/2018 [facility] DIARRHEA Inactive 02/10/2016 Problem 05/30/2018 [facility] Traveler's diarrhea Inactive 02/03/2016 Problem 05/30/2018 [facility] Hernia of anterior abdominal wall Active 12/17/2015 Diagnosis 05/30/2018 [facility] BMI 50.0-59.9 Active 11/06/2015 Diagnosis 05/30/2018 [facility] Conjunctivitis, chronic Active 11/06/2015 Diagnosis 05/30/2018 [facility] Glaucoma Active 07/24/2015 Diagnosis 05/30/2018 [facility] Breast pain, bilateral Active 06/03/2015 Diagnosis 05/30/2018 [facility] Hx of removal of breast implants Active 06/03/2015 Diagnosis 05/30/2018 [facility] Revision of breast implants Active 06/03/2015 Diagnosis 05/30/2018 [facility] Cellulitis, breast Active 06/03/2015 Diagnosis 05/30/2018 [facility] Blurred vision Active 01/21/2015 Diagnosis 05/30/2018 [facility] Screening mammogram Active 01/21/2015 Diagnosis 05/30/2018 [facility] Overweight Active 01/15/2015 Diagnosis 05/30/2018 [facility] Vaccine against flu/influenza Active 01/15/2015 Diagnosis 05/30/2018 [facility] Chest pain Active Problem 07/09/2017 [facility] Diarrhea Active Problem 07/09/2017 [facility] New onset type 2 diabetes mellitus Active Problem 07/09/2017 [facility] PAROXYSMAL ATRIAL FIBRILLATION Active [facility] Medications Medication Details Route Status Patient Instructions Ordering Provider Order Date Source BLOOD GLUCOSE MONITORING SUPPL use to check blood sugar bid Active use to check blood sugar bid 05/29/2018 [facility] MOBIC 15 MG ORAL TABLET 1 by mouth daily Active 1 by mouth daily 05/09/2018 [facility] MULTAQ 400 MG ORAL TABLET one tablet twice daily Active one tablet twice daily 04/03/2018 [facility] ALIGN 4 MG ORAL CAPSULE one tablet twice daily Active one tablet twice daily 04/03/2018 [facility] ELIQUIS 5 MG ORAL TABLET one tablet two times daily Active one tablet two times daily 01/19/2018 [facility] SOTALOL HCL one tablet twice daily No Longer Active one tablet twice daily 01/19/2018 [facility] BLOOD GLUCOSE MONITORING SUPPL Use as directed to test blood sugar twice daily Active Use as directed to test blood sugar twice daily 07/25/2017 [facility] GLUCOSE BLOOD Use as directed to test blood sugar twice daily Active Use as directed to test blood sugar twice daily 07/11/2017 [facility] LANCETS Dispense for use in checking fasting blood sugar and 2 hour postprandial bloodsugar three times per day Active Dispense for use in checking fasting blood sugar and 2 hour postprandial bloodsugar three times per day 07/11/2017 [facility] METFORMIN HCL 1 by mouth twice a day Active 1 by mouth twice a day 07/11/2017 [facility] METFORMIN HCL ER 500 MG ORAL TABLET EXTENDED RELEASE 24 HOUR 2 tablets twice daily Active 2 tablets twice daily 07/11/2017 [facility] PREMARIN 0.625 MG/GM VAGINAL CREAM 1 gm PV nightly at bedtime 3 times per week Active 1 gm PV nightly at bedtime 3 times per week 10/18/2016 [facility] POLYTRIM 70904-7.1 UNIT/ML-% OPHTHALMIC SOLUTION 1-2 drops in affected eye every 4 hours for 7 to 10 days Active 1-2 drops in affected eye every 4 hours for 7 to 10 days 10/18/2016 [facility] POLYTRIM 67794-2.1 UNIT/ML-% OPHTHALMIC SOLUTION 1-2 drops in affected eye every 4 hours for 7 to 10 days No Longer Active 1-2 drops in affected eye every 4 hours for 7 to 10 days 10/18/2016 [facility] PREMARIN 0.625 MG/GM VAGINAL CREAM 1 gm PV nightly at bedtime 3 times per week No Longer Active 1 gm PV nightly at bedtime 3 times per week 10/18/2016 [facility] AUGMENTIN 500-125 MG ORAL TABLET 1 by mouth twice a day Active 1 by mouth twice a day 03/15/2016 [facility] AUGMENTIN 500-125 MG ORAL TABLET 1 by mouth twice a day No Longer Active 1 by mouth twice a day 03/15/2016 [facility] MONISTAT 3 COMBO PACK MARCELLA 200 & 2 MG-% (9GM) VAGINAL KIT use as directed Active use as directed 03/08/2016 [facility] MONISTAT 3 COMBO PACK MARCELLA 200 & 2 MG-% (9GM) VAGINAL KIT use as directed No Longer Active use as directed 03/08/2016 [facility] BACTRIM DS 800-160 MG ORAL TABLET 1 tab by mouth twice a day Active 1 tab by mouth twice a day 03/01/2016 [facility] BACTRIM DS 800-160 MG ORAL TABLET 1 tab by mouth twice a day No Longer Active 1 tab by mouth twice a day 03/01/2016 [facility] ZOFRAN ODT 4 MG ORAL TABLET DISINTEGRATING Take one tablet every 6 hrs as needed for nausea Active Take one tablet every 6 hrs as needed for nausea 02/10/2016 [facility] ZOFRAN ODT 4 MG ORAL TABLET DISINTEGRATING Take one tablet every 6 hrs as needed for nausea No Longer Active Take one tablet every 6 hrs as needed for nausea 02/10/2016 [facility] ONDANSETRON Take one tablet every 6 hrs as needed for nausea No Longer Active Take one tablet every 6 hrs as needed for nausea 02/10/2016 [facility] BENTYL 10 MG ORAL CAPSULE 1 by mouth 4 times a day as needed Active 1 by mouth 4 times a day as needed 02/03/2016 [facility] CIPRO 500 MG ORAL TABLET 1 by mouth twice a day for 3 days Active 1 by mouth twice a day for 3 days 02/03/2016 [facility] CIPRO 500 MG ORAL TABLET 1 by mouth twice a day for 3 days No Longer Active 1 by mouth twice a day for 3 days 02/03/2016 [facility] BENTYL 10 MG ORAL CAPSULE 1 by mouth 4 times a day as needed No Longer Active 1 by mouth 4 times a day as needed 02/03/2016 [facility] DICYCLOMINE HCL 1 by mouth 4 times a day as needed No Longer Active 1 by mouth 4 times a day as needed 02/03/2016 [facility] CLEOCIN 300 MG ORAL CAPSULE 1 tab By Mouth Every 6 hour for 14 days for breast infection Active 1 tab By Mouth Every 6 hour for 14 days for breast infection 06/03/2015 [facility] BACTRIM DS 800-160 MG ORAL TABLET 1 tab by mouth twice a day Active 1 tab by mouth twice a day 06/03/2015 [facility] BACTRIM DS 800-160 MG ORAL TABLET 1 tab by mouth twice a day No Longer Active 1 tab by mouth twice a day 06/03/2015 [facility] CLEOCIN 300 MG ORAL CAPSULE 1 tab By Mouth Every 6 hour for 14 days for breast infection No Longer Active 1 tab By Mouth Every 6 hour for 14 days for breast infection 06/03/2015 [facility] Metformin Hcl 500 Mg Tablet Twice A Day Active [facility] Sitagliptin Phosphate (Januvia) 100 Mg Tablet Daily Active [facility] Allergies, Adverse Reactions, Alerts Substance Category Reaction Severity Reaction type Status Date Reported Comments Source Latex Unknown Allergy to Substance Active 02/20/2016 [facility] Immunizations Immunization Date Given Site Status Last Updated Comments Source influenza immunization (Flu Vax) has been administered 02/18/2017 completed [facility] PEDIATRIC PNEUMOCOCCAL VACCINE ([id number]) #1 06/11/2016 completed [facility] hepatitis A immunization #1 06/09/2016 completed [facility] MMR (measles, mumps, rubella) virus immunization #1 06/09/2016 completed [facility] influenza immunization (Flu Vax) has been administered 01/15/2015 completed [facility] Results Order Name Results Value Reference Range Date Interpretation Comments Source List of providers caring for patient May Ramirez 05/19/2018 [facility] 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 Evaluate the pulmonary veins. TECHNIQUE: Continuous 1.[address] images were obtained through the chest according to pulmonary vein mapping protocol following the intravenous administration of contrast with delayed imaging through the heart. Coronal, sagittal and axial MIP reformatted images are provided. IV contrast dose: 90 mL Omnipaque contrast Total exam DLP: 243.60 mGy-- cm No prior chest CT is available for comparison. FINDINGS: * 3 pulmonary veins are identified, 2 on the right and a common trunk on the left. Measurements are as follows: Right superior pulmonary vein 16 x 17 mm, right inferior pulmonary vein 15 x 16 mm. The common trunk for the left pulmonary veins measures 19 x 22 mm, rapidly tapering to the left superior pulmonary vein measuring 16 x 17 mm and the left inferior pulmonary vein measuring 16 x 15 mm. * No filling defects are identified in the left atrium to suggest the presence of left atrial thrombus. * The AP diameter of the left atrium is 42 mm. * The esophagus comes in closest proximity with the common trunk for the left pulmonary veins. Cardiothoracic ratio measures 12.6/23.2 cm. Ascending aorta and pulmonary trunk do not measure enlarged. No pericardial effusion. There are no pleural effusions. Tiny hiatal hernia. Limited imaging through the upper abdomen shows diffusely decreased attenuation of the liver consistent with hepatic steatosis. Adrenal glands are unremarkable. There is a 10 mm hypodense nodule in the left lobe of the thyroid gland on axial image 9 series 11. No enlarged hilar, mediastinal or axillary lymph nodes. Dependent atelectasis in the bilateral lower lobes. The lungs are otherwise clear of edema, consolidation or lobar collapse. Degenerative changes of the thoracic spine with osteophytes and a few vacuum disks, predominantly involving the mid thoracic spine. There is a small focus of sclerosis involving the left lateral T9 vertebral body; this has been seen dating back to an abdomen and pelvis CT from 01/02/2016 and has not significantly changed. IMPRESSION: 1. A total of 3 pulmonary veins is identified, 2 on the right and a common trunk on the left. Measurements are as above. 2. No left atrial thrombus. 3. A 10 mm hypodense nodule in the left lobe of the thyroid gland, which can be further evaluated with thyroid ultrasound. 4. Hepatic steatosis. Tiny hiatal hernia. 02/13/2018 - - Read by: Sharona Horne MD Dictated Date/time: 02/14/18 08:35 Electronically Signed by: Sharona Horne MD 02/14/18 08:51 FINAL REPORT [facility] culture, salmonella and shigella, stool Final report 01/20/2018 [facility] Campybolacter culture, stool or rectal swab Final report 01/20/2018 [facility] white blood cells in stool Final report None Seen 01/20/2018 [facility] Shiga Toxin EIA Negative Negative 01/20/2018 [facility] Clostridium difficile toxin A+B, serum, quantitative Negative Negative 01/20/2018 [facility] Campybolacter culture, stool or rectal swab Final report 01/20/2018 [facility] white blood cells in stool Final report None Seen 01/20/2018 [facility] Shiga Toxin EIA Negative Negative 01/20/2018 [facility] Clostridium difficile toxin A+B, serum, quantitative Negative Negative 01/20/2018 [facility] Neisseria gonorrhoeae DNA probe Negative Negative 01/19/2018 [facility] trichomonas vaginalis, urine Negative Negative 01/19/2018 [facility] trichomonas vaginalis, urine Negative Negative 01/19/2018 [facility] chlamydia DNA probe Negative Negative 01/19/2018 [facility] blood glucose, random 126 mg/dL 10/17/2017 [facility] blood glucose, random 126 mg/dL 10/17/2017 [facility] Serum or plasma creatine kinase MB measurement (mass/volume) Serum or plasma creatine kinase MB measurement (mass/volume) 0.80 0 - 5.0 07/08/2017 [facility] Serum or plasma creatine kinase measurement (enzymatic activity/volume) Serum or plasma creatine kinase measurement (enzymatic activity/volume) 36 29 - 168 07/08/2017 [facility] Troponin I measurement by highly sensitive enzyme immunoassay Troponin I measurement by highly sensitive enzyme immunoassay null 0 - 0.300 07/08/2017 [facility] Capillary blood glucose measurement by glucometer (mass/volume) Capillary blood glucose measurement by glucometer (mass/volume) 199 70 - 120 07/08/2017 [facility] Automated blood basophil count (count/volume) Automated blood basophil count (count/volume) 0.0 0.0 - 0.1 07/08/2017 [facility] Automated blood basophil count as percentage of total leukocytes Automated blood basophil count as percentage of total leukocytes 0.4 0.0 - 1.0 07/08/2017 [facility] Automated blood eosinophil count Automated blood eosinophil count 0.2 0.0 - 0.4 07/08/2017 [facility] Automated blood eosinophil count as percentage of total leukocytes Automated blood eosinophil count as percentage of total leukocytes 2.4 0.0 - 6.0 07/08/2017 [facility] Automated blood hematocrit (volume fraction) Automated blood hematocrit (volume fraction) 37.2 34.2 - 44.1 07/08/2017 [facility] Automated blood lymphocyte count as percentage ot total leukocytes Automated blood lymphocyte count as percentage ot total leukocytes 21.6 18.0 - 39.1 07/08/2017 [facility] Automated blood monocyte count as percentage of total leukocytes Automated blood monocyte count as percentage of total leukocytes 7.1 4.4 - 11.3 07/08/2017 [facility] Automated blood neutrophil count Automated blood neutrophil count 5.8 2.1 - 6.9 07/08/2017 [facility] Automated blood platelet count (count/volume) Automated blood platelet count (count/volume) 218 140 - 360 07/08/2017 [facility] Automated blood segmented neutrophil count as percentage of total leukocytes Automated blood segmented neutrophil count as percentage of total leukocytes 68.3 38.7 - 80.0 07/08/2017 [facility] Automated erythrocyte mean corpuscular hemoglobin (mass per erythrocyte) Automated erythrocyte mean corpuscular hemoglobin (mass per erythrocyte) 30.5 28 - 32 07/08/2017 [facility] Automated erythrocyte mean corpuscular hemoglobin concentration measurement (mass/volume) Automated erythrocyte mean corpuscular hemoglobin concentration measurement (mass/volume) 33.6 31 - 35 07/08/2017 [facility] Automated erythrocyte mean corpuscular volume Automated erythrocyte mean corpuscular volume 90.7 81 - 99 07/08/2017 [facility] Blood erythrocytes automated count (number/volume) Blood erythrocytes automated count (number/volume) 4.10 3.6 - 5.1 07/08/2017 [facility] Blood hemoglobin measurement (moles/volume) Blood hemoglobin measurement (moles/volume) 12.5 12.0 - 16.0 07/08/2017 [facility] Blood leukocytes automated count (number/volume) Blood leukocytes automated count (number/volume) 8.51 4.8 - 10.8 07/08/2017 [facility] Blood lymphocytes count (number/volume) Blood lymphocytes count (number/volume) 1.8 1.0 - 3.2 07/08/2017 [facility] Blood monocytes automated count (number/volume) Blood monocytes automated count (number/volume) 0.6 0.2 - 0.8 07/08/2017 [facility] Estimated glomerular filtration rate (GFR) determination Estimated glomerular filtration rate (GFR) determination null 60 07/08/2017 [facility] Glucose measurement Glucose measurement 329 74 - 118 07/08/2017 [facility] Plasma globulin measurement (mass/volume) Plasma globulin measurement (mass/volume) 3.0 2.3 - 3.5 07/08/2017 [facility] Serum or plasma alanine aminotransferase measurement (enzymatic activity/volume) Serum or plasma alanine aminotransferase measurement (enzymatic activity/volume) 38 0 - 55 07/08/2017 [facility] Serum or plasma albumin measurement (mass/volume) Serum or plasma albumin measurement (mass/volume) 3.4 3.5 - 5.0 07/08/2017 [facility] Serum or plasma albumin/globulin mass ratio Serum or plasma albumin/globulin mass ratio 1.1 0.8 - 2.0 07/08/2017 [facility] Serum or plasma alkaline phosphatase measurement (enzymatic activity/volume) Serum or plasma alkaline phosphatase measurement (enzymatic activity/volume) 65 40 - 150 07/08/2017 [facility] Serum or plasma anion gap Serum or plasma anion gap 13.6 8 - 16 07/08/2017 [facility] Serum or plasma calcium measurement (mass/volume) Serum or plasma calcium measurement (mass/volume) 8.8 8.4 - 10.2 07/08/2017 [facility] Serum or plasma carbon dioxide, total measurement (moles/volume) Serum or plasma carbon dioxide, total measurement (moles/volume) 24 22 - 29 07/08/2017 [facility] Serum or plasma chloride measurement (moles/volume) Serum or plasma chloride measurement (moles/volume) 104 98 - 107 07/08/2017 [facility] Serum or plasma cholesterol in HDL measurement (mass/volume) Serum or plasma cholesterol in HDL measurement (mass/volume) 36 40 - 60 07/08/2017 [facility] Serum or plasma cholesterol in LDL measurement (mass/volume) Serum or plasma cholesterol in LDL measurement (mass/volume) 98 60 - 130 07/08/2017 [facility] Serum or plasma cholesterol measurement (mass/volume) Serum or plasma cholesterol measurement (mass/volume) 150 0 - 199 07/08/2017 [facility] Serum or plasma creatinine measurement (mass/volume) Serum or plasma creatinine measurement (mass/volume) 0.80 0.57 - 1.11 07/08/2017 [facility] Serum or plasma potassium measurement (moles/volume) Serum or plasma potassium measurement (moles/volume) 4.6 3.5 - 5.1 07/08/2017 [facility] Serum or plasma protein measurement (mass/volume) Serum or plasma protein measurement (mass/volume) 6.4 6.5 - 8.1 07/08/2017 [facility] Serum or plasma sodium measurement (moles/volume) Serum or plasma sodium measurement (moles/volume) 137 136 - 145 07/08/2017 [facility] Serum or plasma total bilirubin measurement (mass/volume) Serum or plasma total bilirubin measurement (mass/volume) 0.4 0.2 - 1.2 07/08/2017 [facility] Serum or plasma total cholesterol/cholesterol in HDL mass ratio Serum or plasma total cholesterol/cholesterol in HDL mass ratio 4.2 3.0 - 3.6 07/08/2017 [facility] Serum or plasma triglyceride measurement (mass/volume) Serum or plasma triglyceride measurement (mass/volume) 79 0 - 149 07/08/2017 [facility] Serum or plasma urea nitrogen measurement (mass/volume) Serum or plasma urea nitrogen measurement (mass/volume) 15 7 - 26 07/08/2017 [facility] Serum or plasma urea nitrogen/creatinine mass ratio Serum or plasma urea nitrogen/creatinine mass ratio 19 6 - 25 07/08/2017 [facility] Red Cell Distribution Width 12.4 11.7 - 14.4 07/08/2017 [facility] IM GRANULOCYTES % 0.2 0.0 - 1.0 07/08/2017 [facility] Absolute Immature Granulocyte (auto 0.02 0 - 0.1 07/08/2017 [facility] Aspartate Amino Transf (AST/SGOT) 20 5 - 34 07/08/2017 [facility] Activated partial thromboplastin time (aPTT) in platelet poor plasma bycoagulation assay Activated partial thromboplastin time (aPTT) in platelet poor plasma bycoagulation assay 29.3 23.8 - 35.5 07/07/2017 [facility] Fibrin D-dimer DDU measurement in platelet poor plasma (mass/volume) Fibrin D-dimer DDU measurement in platelet poor plasma (mass/volume) 0.42 0.00 - 0.45 07/07/2017 [facility] Free thyroxine index Free thyroxine index 1.7331 1.4 - 3.8 07/07/2017 [facility] INR in Platelet poor plasma by Coagulation assay INR in Platelet poor plasma by Coagulation assay 0.99 07/07/2017 [facility] Prothrombin time (PT) in platelet poor plasma by coagulation assay Prothrombin time (PT) in platelet poor plasma by coagulation assay 12.3 11.9 - 14.5 07/07/2017 [facility] Serum or plasma thyrotropin measurement by detection limit <=0.005 miu/l (units/volume) Serum or plasma thyrotropin measurement by detection limit <=0.005 miu/l (units/volume) 3.572 0.350 - 4.940 07/07/2017 [facility] Serum or plasma thyroxine (T4) measurement (mass/volume) Serum or plasma thyroxine (T4) measurement (mass/volume) 6.59 4.5 - 10.9 07/07/2017 [facility] Serum or plasma triiodothyronine resin uptake (T3RU) Serum or plasma triiodothyronine resin uptake (T3RU) 26.30 22.5 - 37.0 07/07/2017 [facility] Hemoglobin A1c Percent 11.9 4.0 - 7.0 07/07/2017 [facility] protein, urine, semiquantitative (dipstick) negative 11/05/2016 [facility] leukocyte esterase, urine, by dipstick negative 11/05/2016 [facility] nitrite, urine, semiquantitative negative 11/05/2016 [facility] nitrite, urine, semiquantitative negative 11/05/2016 [facility] urine color yellow 11/05/2016 [facility] glucose, urine, semiquantitative negative 11/05/2016 [facility] blood in urine (hemoglobin) by dipstick negative 11/05/2016 [facility] appearance, urine clear 11/05/2016 [facility] urobilinogen, urine, semiquantitative (dipstick) negative 11/05/2016 [facility] urobilinogen, urine, semiquantitative (dipstick) negative 11/05/2016 [facility] protein, urine, semiquantitative (dipstick) negative 11/05/2016 [facility] leukocyte esterase, urine, by dipstick negative 11/05/2016 [facility] bilirubin, urine negative 11/05/2016 [facility] glucose, urine, semiquantitative negative 11/05/2016 [facility] blood in urine (hemoglobin) by dipstick negative 11/05/2016 [facility] appearance, urine clear 11/05/2016 [facility] ketones, urine, by test strip negative 11/05/2016 [facility] urine culture Greater than 100,000 CFU/mL of Escherichia coli 03/08/2016 [facility] occult blood, stool (E&M) 1+ NEGATIVE 03/08/2016 [facility] squamous epithelial cells 0-5 /HPF < OR=5 03/08/2016 [facility] squamous epithelial cells 0-5 /HPF < OR=5 03/08/2016 [facility] RBC, Urine 0-2 /HPF < OR=2 03/08/2016 [facility] bacteria, urine microscopy MODERATE NONE SEEN 03/08/2016 [facility] bacteria, urine microscopy MODERATE NONE SEEN 03/08/2016 [facility] hyaline casts, urine 0-1 NONE SEEN 03/08/2016 [facility] pH, urine, semiquantitative 5.5 5.0 - 8.0 03/08/2016 [facility] WBC urine on microscopy 40-60 /HPF < OR=5 03/08/2016 [facility] RBC, Urine 0-2 /HPF < OR=2 03/08/2016 [facility] specific gravity, urine 1.021 1.001 - 1.035 03/08/2016 [facility] hyaline casts, urine 0-1 NONE SEEN 03/08/2016 [facility] pH, urine, semiquantitative 5.5 5.0 - 8.0 03/08/2016 [facility] Abdomen/Pelvis w IV contrast CT Abdomen/Pelvis w IV contrast CT EXAMINATION: CT of the abdomen and pelvis with contrast. HISTORY: R10.9 Unspecified abdominal pain; R10.32 Left lower quadrant pain; R10.31 Right lower quadrant pain; COMPARISON: There are no comparisons. FINDINGS: Multiple contiguous transaxial CT images of the abdomen and pelvis are obtained following the intravenous administration of contrast. Oral contrast was administered. Delayed images are performed. Coronal and sagittal reformatted images are performed. Total DLP is 1047 mGy-cm. The visualized lung bases demonstrate mild bilateral dependent atelectasis. There is no focal pneumonic consolidation, pleural effusion, or pneumothorax. The heart size is within normal limits without pericardial effusion. There is diffuse hepatic steatosis. There is no focal intrahepatic lesion. The gallbladder is surgically absent. The spleen, pancreas, and adrenal glands are normal. There is a 3.4 cm cyst within the right kidney. The kidneys are otherwise normal without hydronephrosis. The bladder is grossly normal. The small and large bowel are normal in course and caliber without evidence of inflammation or obstruction. The appendix is normal. There is no free intraperitoneal fluid or gas. There is no abdominal or pelvic lymphadenopathy. The aorta is normal in course and caliber. Bone windows demonstrate no suspicious osteolytic or osteoblastic lesions. IMPRESSION: 1. No CT evidence of acute intra-abdominal or intrapelvic pathologic process. There is no bowel obstruction, free intraperitoneal fluid, or free intraperitoneal gas. The appendix is normal. 2. Status post cholecystectomy. 3. Diffuse hepatic steatosis. 01/02/2016 - - Read by: Sunny Rousseau MD Dictated Date/time: 01/03/16 11:34 Electronically Signed by: Sunny Rousseau MD 01/03/16 11:39 FINAL REPORT LSAHAUN Rodrigues Vital Signs Vital Sign Value Date Comments Source Diastolic (mm Hg) 85 05/29/2018 [facility] Systolic (mm Hg) 148 05/29/2018 [facility] Height 62 05/29/2018 [facility] Heart Rate 81 05/29/2018 [facility] Respitory Rate 17 05/29/2018 [facility] Temperature Oral (F) 98.1 F 05/29/2018 [facility] Weight 157.80 05/29/2018 [facility] Diastolic (mm Hg) 84 05/09/2018 [facility] Systolic (mm Hg) 160 05/09/2018 [facility] Height 62 05/09/2018 [facility] Heart Rate 69 05/09/2018 [facility] Respitory Rate 19 05/09/2018 [facility] Temperature Oral (F) 98 F 05/09/2018 [facility] Weight 156.44 05/09/2018 [facility] Diastolic (mm Hg) 82 04/03/2018 [facility] Systolic (mm Hg) 150 04/03/2018 [facility] Height 62 04/03/2018 [facility] Heart Rate 80 04/03/2018 [facility] Respitory Rate 12 04/03/2018 [facility] Temperature Oral (F) 98.4 F 04/03/2018 [facility] Weight 157.40 04/03/2018 [facility] Diastolic (mm Hg) 76 01/19/2018 [facility] Systolic (mm Hg) 144 01/19/2018 [facility] Height 62 01/19/2018 [facility] Heart Rate 51 01/19/2018 [facility] Respitory Rate 17 01/19/2018 [facility] Temperature Oral (F) 98.0 F 01/19/2018 [facility] Weight 153 01/19/2018 [facility] Diastolic (mm Hg) 83 10/17/2017 [facility] Systolic (mm Hg) 165 10/17/2017 [facility] Height 62 10/17/2017 [facility] Heart Rate 54 10/17/2017 [facility] Respitory Rate 18 10/17/2017 [facility] Temperature Oral (F) 97.8 F 10/17/2017 [facility] Weight 153.60 10/17/2017 [facility] Diastolic (mm Hg) 83 07/11/2017 [facility] Systolic (mm Hg) 142 07/11/2017 [facility] Height 62 07/11/2017 [facility] Heart Rate 83 07/11/2017 [facility] Respitory Rate 16 07/11/2017 [facility] Temperature Oral (F) 97.9 F 07/11/2017 [facility] Weight 158.80 07/11/2017 [facility] Encounters Location Location Details Encounter Type Encounter Number Reason For Visit Attending Provider ADM Date DC Date Status Source [facility] Est Patient Exp Problem - 93477 [id number] Arron Chang MD 01/15/2015 [facility] Est Patient Exp Problem - 43715 [id number] Ab Barry MD 01/21/2015 [facility] Est Patient Exp Problem - 82717 [id number] Ab Barry MD 06/05/2015 [facility] Est Patient Exp Problem - 90264 [id number] Ab Barry MD 06/05/2015 [facility] Est Patient Exp Problem - 06921 [id number] Ab Barry MD 07/24/2015 [facility] Est Patient Exp Problem - 11049 [id number] Ab Barry MD 10/02/2015 [facility] Est Patient Exp Problem - 67744 [id number] Arron Chang MD 11/06/2015 [facility] Est Patient Exp Problem - 07947 [id number] Arron Chang MD 12/17/2015 [facility] [id number] Russell Shay 01/02/2016 01/03/2016 [facility] [place] [facility] Est Patient Exp Problem - 79085 [id number] Ab Barry MD 02/03/2016 [facility] Est Patient Exp Problem - 97942 [id number] Jyoti Jj MD 02/17/2016 [facility] Est Patient Exp Problem - 70246 [id number] Mykel Herrera MD 03/02/2016 [facility] Est Patient Exp Problem - 11607 [id number] Kirsten Miranda MD 03/11/2016 [facility] Est Patient Exp Problem - 21122 [id number] Jyoti Jj MD 10/30/2016 [facility] Est Patient Detailed - 44869 [id number] Jyoti Jj MD 11/05/2016 [facility] Discharged Inpatient (obs) [id number] JEANE SARABIA MD 07/07/2017 07/08/2017 [facility] Est Patient Exp Problem - 08602 [id number] Jyoti Jj MD 07/22/2017 [facility] Est Patient Exp Problem - 90005 [id number] Jyoti Jj MD 10/31/2017 [facility] Est Patient Detailed - 21007 [id number] Jyoti Jj MD 01/20/2018 [facility] Vst, Est Level IV [id number] Jyoti Jj MD 04/03/2018 [facility] Est Patient Detailed - 01156 [id number] Annalee Wise MD 05/12/2018 [facility] Est Patient Detailed - 87689 [id number] Nidhi Millard MD 05/29/2018 [facility] Procedures Procedure Code Date Perfomer Comments Source HEMOGLOBIN A1C - In House 92696 04/03/2018 Parviz RODRIGUEZ [facility] X-ray of chest, two views [id number] 07/07/2017 [facility] Urinalysis - Dip only - In House 74129 11/05/2016 Parviz RODRIGUEZ [facility] MEASLES & RUBELLA VIRUS VACCINE LIVE SUBQ 71783 06/09/2016 [facility] [employer] [facility] Hepatitis A - Adult 02161 06/09/2016 [facility] [employer] [facility] Admin of Vaccine - Injection - Each Add'l 59158 06/09/2016 [facility] [employer] [facility] Admin of Vaccine - Injection - 1 85276 06/09/2016 [facility] [employer] [facility] Influenza - Adult - Injection 00657 01/15/2015 [facility] [employer] [facility]
--- OUTSIDE RECORDS SUMMARY | 2018-06-19 05:34 | XMS REPORT | Clinical Summary ---
Author Author [facility] Organization [facility] Address Unknown Phone Unavailable Care Team Providers Care Investment Accountant Name Role Phone Kirsten Miranda MD PCP Unavailable Allergies Comments Active Allergy Reactions Severity Noted Date Latex 10/20/2017 Medications End Date Status Medication Sig Dispensed Refills Start Date Active metFORMIN (GLUCOPHAGE) Take 1,000 mg 0 500 mg tablet by mouth 2 (two) times a day. Active UNABLE TO FIND CinSulin 0 Active UNABLE TO FIND Lactoserum - 0 4 times a day Active UNABLE TO FIND Axxa Cell 0 twice a day Active UNABLE TO FIND ProBio 5 - 2 0 capsules at bedtime Active sotalol (BETAPACE) 160 MG Take 1 tablet 180 tablet 3 tablet (160 mg 8 total) by mouth 2 (two) times a day. Active apixaban (ELIQUIS) 5 mg Take 1 tablet 180 tablet 3 tablet (5 mg total) 8 by mouth 2 (two) times a day. 11/04/2017 Discontinued rivaroxaban (XARELTO) 20 Take 1 tablet 30 tablet 3 201 mg tablet (20 mg total) 8 by mouth daily. 11/03/2017 Discontinued sotalol (BETAPACE) 80 MG Take 80 mg by 0 tablet mouth 2 (two) times a day. 01/16/2018 Discontinued sotalol (SOTALOL AF) 80 Take 0.5 90 tablet 1 MG tablet tablets (40 8 mg total) by mouth 2 (two) times a day. 12/19/2017 Discontinued rivaroxaban (XARELTO) 20 Take 1 tablet 90 tablet 3 mg tablet (20 mg total) 8 by mouth daily. 12/28/2017 Discontinued edoxaban 60 mg tablet Take 1 tablet 30 tablet 3 by mouth 8 daily. 01/16/2018 Discontinued edoxaban 60 mg tablet Take 1 tablet 30 tablet 3 by mouth 8 daily. 01/16/2018 Discontinued apixaban (ELIQUIS) 5 mg Take 5 mg by 0 tablet mouth 2 (two) times a day. 01/16/2018 Discontinued sotalol (BETAPACE) 160 MG Take 1 tablet 180 tablet 1 tablet (160 mg 8 total) by mouth 2 (two) times a day. 01/20/2018 Discontinued apixaban (ELIQUIS) 5 mg Take 1 tablet 180 tablet 3 tablet (5 mg total) 8 by mouth 2 (two) times a day. 01/20/2018 Discontinued apixaban (ELIQUIS) 5 mg Take 1 tablet 180 tablet 3 tablet (5 mg total) 8 by mouth 2 (two) times a day. Active Problems Not on file Encounters Care Team Description Date Type Specialty Michelle Mittal MA Med Refill 01/20/2018 Refill Cardiology Nan Haas MA Med Refill 01/20/2018 Refill Cardiology 01/17/2018 Clinical Corporate Wellness Support Ramone Powers MD Atrial fibrillation, unspecified type (Primary Dx); Paroxysmal atrial fibrillation; Palpitations; Hypercholesterolemia; Chest pain, unspecified type; History of cardiac arrhythmia; History of hypertension; Type 2 diabetes mellitus with complication, unspecified jail insulin use status; Pure hypercholesterolemia; History of partial colectomy 01/16/2018 Office Visit Cardiology Maribeth Mcintosh MA Prescription costs 12/30/2017 Telephone Cardiology Michelle Mittal MA Med Refill 12/28/2017 Refill Cardiology Nan Haas MA SAMPLE 12/23/2017 Telephone Cardiology Michelle Mittal MA Med Refill 12/19/2017 Refill Cardiology Michelle Mittal MA Medication Question 11/15/2017 Telephone Cardiology Michelle Mittal MA Med Refill 11/04/2017 Refill Cardiology Ramone Powers MD Med Refill 11/03/2017 Refill Cardiology Ramone Powers MD 11/03/2017 Documentation Cardiology Ramone Powers MD 11/01/2017 Orders Only Cardiology Michelle Mittal MA Med Refill 10/28/2017 Refill Cardiology Jyoti Jj MD 10/27/2017 Orders Only Cardiology Michelle Mittal MA Palpitations (Primary Dx) 10/25/2017 Orders Only Cardiology Ramone Powers MD Palpitations (Primary Dx); Hypercholesterolemia; Chest pain, unspecified type; History of cardiac arrhythmia; History of hypertension; Type 2 diabetes mellitus with complication, unspecified jail insulin use status; Pure hypercholesterolemia; History of partial colectomy 10/20/2017 Office Visit Cardiology Louisa Ventura DO Heart palpitations (Primary Dx) 10/17/2017 Emergency Emergency Medicine after 06/18/2017 Immunizations Name Dates Previously Given Next Due FLUCELVAX QUAD PF (0.5mL 01/17/2018 syringe) Family History Medical History Relation Name Comments Colon cancer Father Relation Name Status Comments Father Social History Date Tobacco Use Types Packs/Day Years Used Never Smoker Smokeless Tobacco: Never Used Alcohol Use Drinks/Week oz/Week Comments No Sex Assigned at Date Recorded Not on file Industry Job Start Date Occupation Not on file Not on file Not on file Travel End Travel History Travel Start No recent travel history available. Last Filed Vital Signs Time Taken Vital Sign Reading 01/16/2018 9:59 AM CDT Blood Pressure 146/74 01/16/2018 9:59 AM CDT Pulse 61 01/16/2018 9:59 AM CDT Temperature 36.7 C (98.1 F) 10/17/2017 3:00 PM CDT Respiratory Rate 20 01/16/2018 9:59 AM CDT Oxygen Saturation 98% - Inhaled Oxygen - Concentration 01/16/2018 9:59 AM CDT Weight 69.9 kg (154 lb 3.2 oz) 01/16/2018 9:59 AM CDT Height 157.5 cm (5' 2") 01/16/2018 9:59 AM CDT Body Mass Index 28.2 Plan of Treatment Health Maintenance Due Date Last Done Comments DIABETIC RETINAL EYE EXAM 1945 DIABETIC FOOT EXAM 08/22/1957 URINE MICROALBUMIN 08/22/1957 BREAST CANCER SCREENING 08/22/1997 COLON CANCER SCREENING 08/22/1997 SHINGLES VACCINES (1 of 08/22/1997 2) PNEUMOCOCCAL 08/22/2012 POLYSACCHARIDE VACCINE AGE 65 AND OVER PNEUMOCOCCAL-13 08/22/2012 INFLUENZA VACCINE Completed 01/17/2018 Procedures Comments Procedure Name Priority Date/Time Associated Diagnosis ECG 12-LEAD Routine 01/16/2018 Atrial fibrillation, 10:07 AM CDT unspecified type (HCC) ECHOCARDIOGRAM 2D Routine 10/27/2017 Palpitations COMPLETE W MMODE SPECTRAL 1:58 PM CDT COLOR DOPPLER ([id number]) CARDIOVASCULAR REPORT Routine 10/25/2017 12:54 PM CDT THYROID STIMULATING Routine 10/25/2017 Palpitations HORMONE 12:54 PM CDT LIPID PANEL Routine 10/25/2017 Hypercholesterolemia 12:54 PM CDT CV HOLTER MONITOR GREATER Routine 10/25/2017 THAN 48 HOUR ECG ED PRELIMINARY Routine 10/17/2017 INTERPRETATION 3:15 PM CDT XR CHEST 1 VW PORTABLE STAT 10/17/2017 2:39 PM CDT ZZESTIMATED GFR STAT 10/17/2017 1:10 PM CDT B NATRIURETIC PEPTIDE STAT 10/17/2017 1:10 PM CDT TROPONIN STAT 10/17/2017 1:10 PM CDT COMPREHENSIVE METABOLIC STAT 10/17/2017 PANEL 1:10 PM CDT HC COMPLETE BLD COUNT STAT 10/17/2017 W/AUTO DIFF 1:10 PM CDT ECG 12-LEAD STAT 10/17/2017 12:36 PM CDT ECG 12-LEAD Routine 10/17/2017 [id number] Routine 08/08/2017 after 06/18/2017 Results * ECG 12 lead (01/16/2018 10:07 AM CDT) Only the most recent of 3 results within the time period is included. Ventricular rate 55 [facility] Atrial rate 55 [facility] HI interval 172 [facility] QRSD interval 96 [facility] QT interval 450 [facility] QTC interval 430 [facility] P axis 1 46 [facility] QRS axis 1 72 [facility] T wave axis 43 [facility] MUSE EKG impression Sinus bradycardia-Anterior [facility] MUSE infarct , age undetermined-Abnormal ECG-In automated comparison with ECG of 17-OCT-2017 12:36,-Questionable change in QRS axis- Performing Organization Address City/State/Zipcode Phone Number [facility] M[facility] [address] [place] [address] * Echocardiogram complete w contrast and 3D if needed (10/27/2017 1:58 PM CDT) Ao Root Diameter 3.05 cm [facility] AoV Area, Vmax 2.06 cm2 [facility] AoV Area, VTI 2.29 cm2 [facility] AoV Mean PG 4.33 mmHg [facility] AoV Peak PG 8.04 mmHg [facility] AoV Vmax 1.42 m/s [facility] AoV VTI 0.31 m [facility] BSA [place] 1.77 m2 [facility] BSA 1.69 m2 [facility] IVS,d 1.19 cm [facility] IVS/LVPW,2D 0.91 [facility] Left Atrium Dimension 3.25 cm [facility] Anterior LV,d 3.04 cm [facility] LV EF,2D 67.38 % [facility] LV EF,A2C 59.29 % [facility] LV EF,A4C 51.97 % [facility] LV EF,BP 57.81 % [facility] [place],d A2C 6.42 cm [facility] [place],d A4C 7.16 cm [facility] [place],s A2C 5.74 cm [facility] [place],s A4C 5.91 cm [facility] LV,s 2.10 cm [facility] LV SV,A2C 32.87 % [facility] LV SV,A4C 21.25 % [facility] LV SV,BP 28.98 % [facility] LV Vol,d A2C 55.44 mL [facility] LV Vol,d A4C 40.88 ml [facility] LV Vol,d BP 50.13 ml [facility] LV Vol,s A2C 22.57 mL [facility] LV Vol,s A4C 19.63 ml [facility] LV Vol,s BP 21.15 nl [facility] LVOT area 2.80 cm2 [facility] LVOT Diam,S 1.89 cm [facility] LVOT Vmax 1.04 m/s [facility] LVOT VTI 0.25 m [facility] LVPWD,d 1.30 cm [facility] RVSP (TR) 33.29 mmHg [facility] TR Vpeak 2.41 mm/s [facility] MV E A ratio 0.92 mmHg [facility] RA pressure 10.00 mmHg [facility] TR pk grad 23.29 mmHg [facility] AoV area i VTI BSA [place] 1.35 cm2/m2 [facility] LV SI MOD BP BSA [place] 17.13 ml/m2 [facility] LV Vol Index s bpmod BSA 29.63 ml/m2 [facility] [place] PV Vmn 12.50 m/s [facility] BMI 27.44 kg/m2 [facility] E wave decelartion time 268.28 msec [facility] Pulm vein S/D ratio 1.18 [facility] MV Peak A Atul 1.02 m/s [facility] MV valve area p 1/2 2.83 cm2 [facility] method MV Peak E Atul 0.93 m/s [facility] MV stenosis pressure 1/2 77.80 ms [facility] time PV Peak S Atul 48.32 m/s [facility] PV Peak D Atul 40.88 m/s [facility] AV LVOT peak gradient 4.35 mmHg [facility] RVSP 33.29 mmHg [facility] Ao Root Diameter 3.05 cm [facility] LV SYS VOL 14.32 ml [facility] LV DENNY VOL 36.25 ml [facility] LA area s A4C 16.30 cm2 [facility] LV SI Teich 2D 12.97 ml/m2 [facility] LV SV Teich 2D 21.93 ml [facility] LV Vol s Teich PSAX 14.32 ml [facility] LVOT CI 2.65 l/min/m2 [facility] LVOT CO 4.47 l/min [facility] LVOT HR for LVOT CO 63.70 bpm [facility] LVOT SI 41.53 ml/m2 [facility] BSA [place] 1.74 m2 [facility] AoV Vmn 0.99 [facility] IVS s 2D 1.63 [facility] LV FS Teich 2D 31.16 [facility] MV AE ratio 1.09 [facility] LV FS Cube 2D 31.16 [facility] LVOT Vmn 0.64 [facility] Pt Size 157.48 [facility] Pt Wt 68.04 [facility] Aov area Vmn 1.80 cm2 [facility] LA A_P score P 1.55 [facility] LVOT mean grad 1.95 mmHg [facility] AoV area I VMN bsa 1.07 cm2/m2 [facility] IVS pct thck PLAX 37.47 % [facility] LV SI Cube 2D 11.23 ml/m2 [facility] LV SV Cube 2D 19.00 ml [facility] LV vol d cube 2D 28.19 ml [facility] LV vol s cube 2D 9.20 ml [facility] LVPW pct thck PLAX -0.17 % [facility] LVPW s PLAX 1.30 cm [facility] MV Decel slope 3.46 m/s2 [facility] PulmV Denny Atul 40.88 cm/s [facility] PulmV S D Atul 1.18 [facility] PulmV Sys Atul 48.32 cm/s [facility] PulmV A Revs Atul 46.70 % [facility] LA Vol MOD A4C 40.00 ml [facility] Velocity Ratio (V1/V2) 0.73 m/s [facility] EF 60.50 % [facility] E/A ratio 0.91 [facility] LV Systolic Volume Index 13.36 mL/m2 [facility] LV Diastolic Volume Index 32.80 mL/m2 [facility] Narrative Performed At [facility] Left ventricular systolic function is normal. Left Ventricular ejection fraction is 50 - 55%. Normal left ventricular regional wall motion. Mild concentric Left ventricular hypertrophy. Normal right ventricular size and function. No hemodynamically significant valvular stenosis or regurgitation. No pericardial effusion. No previous echo for comparison. Performing Organization Address City/State/Zipcode Phone Number [facility] [address] [place] [address] * Cardiovascular Report (10/25/2017 12:54 PM CDT) Interpretation NoteComment: Supplemental [facility] report is available. Narrative Performed At Performed at:01 - [employer] [facility] [address] [facility], [id number] Commanding Officer Motorized Squad: Mendel Coelho MD, Phone:[phone] Performing Organization Address City/State/[facility] Phone Number [facility] * Thyroid stimulating hormone (10/25/2017 12:54 PM CDT) TSH 2.300 0.450 - 4.500 uIU/mL [facility] Specimen Blood Narrative Performed At Performed at:01 - [facility] [address] [place], [id number] Commanding Officer Motorized Squad: Xander Shannon MD, Phone:[phone] Performing Organization Address [facility] Phone Number [facility] * Lipid panel (10/25/2017 12:54 PM CDT) Cholesterol 165 100 - 199 mg/dL [facility] Triglycerides 99 0 - 149 mg/dL [facility] HDL cholesterol 43 >39 mg/dL [facility] VLDL cholesterol bret 20 5 - 40 mg/dL [facility] LDL cholesterol 102 (H) 0 - 99 mg/dL [facility] calculated Non-HDL cholesterol 122 0 - 129 mg/dL [facility] Specimen Blood Narrative Performed At Performed at:01 - [facility] [place], [id number] Commanding Officer Motorized Squad: Xander Shannon MD, Phone:[phone] Performing Organization Address [facility] Phone Number [facility] * CV Holter monitor greater than 48 hours (10/25/2017) Narrative Performed At * ECG ED Preliminary Interpretation - NOT AN ORDER (10/17/2017 3:15 PM CDT) Narrative Performed At Louisa Ventura DO 10/17/20178:08 PM ECG ED Preliminary Interpretation - Not an Order Performed by: LOUISA VENTURA Authorized by: LOUISA VENTURA ECG reviewed by ED Physician in the absence of a hopper filler: yes Interpretation: Interpretation: normal Rate: ECG rate:71 ECG rate assessment: normal Rhythm: Rhythm: sinus rhythm Ectopy: Ectopy: PAC QRS: QRS axis:Normal QRS intervals:Normal ST segments: ST segments:Normal T waves: T waves: normal * XR Chest 1 Vw Portable (10/17/2017 2:39 PM CDT) Narrative Performed At EXAMINATION:XR CHEST 1 VW PORTABLE [facility] CLINICAL HISTORY:Chest Pain COMPARISON:04/21/2012 IMPRESSION: Mild cardiomegaly. Lungs are clear without infiltrate, consolidation, pleural effusion or pneumothorax. Osseous structures are intact with mild degenerative changes. [id number] Procedure Note Hm Interface, Radiology Results Incoming - 10/17/2017 2:44 PM CDT EXAMINATION: XR CHEST 1 VW PORTABLE CLINICAL HISTORY: Chest Pain COMPARISON: 04/21/2012 IMPRESSION: Mild cardiomegaly. Lungs are clear without infiltrate, consolidation, pleural effusion or pneumothorax. Osseous structures are intact with mild degenerative changes. [facility]-[id number] Performing Organization Address City/State/Zipcode Phone Number [facility] [address] [place] [address] * Estimated GFR (10/17/2017 1:10 PM CDT) GFR Non Af Amer 83 mL/min/1.73 m2 [facility] AND GENOMIC MEDICINE GFR Af Amer >90 mL/min/1.73 m2 [facility] OF Comment: PATHOLOGY AND Chronic kidney disease: <60 GENOMIC MEDICINE mL/min/1.73m2 Kidney failure: <15 mL/min/1.73m2 The estimated GFR is calculated from the IDMS-traceable Modification of Diet in Renal Disease Equation. The accuracy of the calculation is poor when the creatinine is normal. Calculated values >90 mL/min/1.73m2 are not reported. This equation has not been validated in children (<18 years), women, the elderly (>70 years), or ethnic groups other than Caucasians and Americans. Specimen Plasma specimen Performing Organization Address [facility] Phone Number [facility] [address] [facility] [place] [address] PATHOLOGY AND [employer] MEDICINE * Troponin (10/17/2017 1:10 PM CDT) Troponin <0.01 0.00 - 0.60 ng/mL [facility] OF Comment: PATHOLOGY AND 0.11 - 1.49 GENOMIC MEDICINE ng/mlMay indicate increased risk of acute coronary syndrome. >=1.5 ng/ml Consistent with acute myocardial infarction. The diagnostic value of a single normal or non-diagnostic result is questionable.Serial samples at 2-6 hour intervals are required to rule out acute myocardial injury. Specimen Plasma specimen Performing Organization Address [facility]/Zipcode Phone Number [place] [address] [place] [address] PATHOLOGY AND GENOMIC MEDICINE * CBC with platelet and differential (10/17/2017 1:10 PM CDT) WBC 6.3 4.2 - 11.0 k/uL [facility] AND GENOMIC MEDICINE RBC 4.73 4.04 - 5.86 m/uL [facility]OLOGY AND GENOMIC MEDICINE HGB 14.4 11.5 - 15.3 g/dL [facility]OLOGY AND GENOMIC MEDICINE HCT 44.9 34.0 - 45.0 % [facility]OLOGY AND GENOMIC MEDICINE MCV 94.9 80.0 - 98.0 fL [facility]OLOGY AND GENOMIC MEDICINE MCH 30.4 27.0 - 34.0 pg [facility] OF PATHOLOGY AND GENOMIC MEDICINE MCHC 32.1 31.5 - 36.5 g/dL [facility] PATHOLOGY AND GENOMIC MEDICINE RDW - SD 45.3 37.0 - 51.0 fL [facility]OLOGY AND GENOMIC MEDICINE MPV 10.3 7.4 - 10.4 fL [facility]OLOGY AND GENOMIC MEDICINE Platelet count 273 150 - 400 k/uL [facility]OLOGY AND GENOMIC MEDICINE Nucleated RBC 0.00 /100 WBC [facility] OF PATHOLOGY AND GENOMIC MEDICINE Neutrophils 54.4 36.0 - 66.0 % [facility] OF PATHOLOGY AND GENOMIC MEDICINE Lymphocytes 31.2 24.0 - 44.0 % [facility] PATHOLOGY AND GENOMIC MEDICINE Monocytes 7.4 (H) 0.0 - 6.0 % [facility] PATHOLOGY AND GENOMIC MEDICINE Eosinophils 6.0 0.0 - 6.0 % [facility] PATHOLOGY AND GENOMIC MEDICINE Basophils 0.8 0.0 - 1.2 % [facility] PATHOLOGY AND GENOMIC MEDICINE Immature granulocytes 0.2 0.0 - 1.0 % [facility] OF PATHOLOGY AND GENOMIC MEDICINE Specimen Blood Performing Organization Address City/[facility]/Zipcode Phone Number [address] [address] PATHOLOGY AND GENOMIC MEDICINE * B natriuretic peptide (10/17/2017 1:10 PM CDT) BNP 32 0 - 100 pg/mL [facility]OLOGY AND GENOMIC MEDICINE Specimen Blood Performing Organization Address City/[facility]/Zipcode Phone Number [place] [address] [place] [address] PATHOLOGY AND GENOMIC MEDICINE * Comprehensive metabolic panel (10/17/2017 1:10 PM CDT) Sodium 141 135 - 150 mEq/L [facility] OF [facility]OLOGY AND GENOMIC MEDICINE Potassium 4.8 3.5 - 5.0 mEq/L [facility] PATHOLOGY AND GENOMIC MEDICINE Chloride 104 100 - 109 mEq/L [facility]OLOGY AND GENOMIC MEDICINE CO2 28 24 - 32 mmol/L [facility] [place] OF PATHOLOGY AND GENOMIC MEDICINE Anion gap 9@ANIO 7 - 15 mEq/L [facility]OLOGY AND GENOMIC MEDICINE BUN 9 7 - 18 mg/dL [facility]OLOGY AND GENOMIC MEDICINE Creatinine 0.7 (L) 0.8 - 1.5 mg/dL [facility] AND GENOMIC MEDICINE Glucose 115 (H) 65 - 100 mg/dL [facility]OLOGY AND GENOMIC MEDICINE Calcium 9.6 8.6 - 10.7 mg/dL [facility]OLOGY AND GENOMIC MEDICINE Protein 8.3 (H) 6.3 - 8.2 g/dL [facility]OLOGY AND GENOMIC MEDICINE Albumin 4.4 3.2 - 5.0 g/dL [facility]OLOGY AND GENOMIC MEDICINE A/G ratio 1.1 0.7 - 3.8 [facility]OLOGY AND GENOMIC MEDICINE Alkaline phosphatase 67 30 - 120 U/L [facility] AND GENOMIC MEDICINE AST 16 15 - 37 U/L [facility]OLOGY AND GENOMIC MEDICINE ALT 37 30 - 65 U/L [facility]OLOGY AND GENOMIC MEDICINE Total bilirubin 0.3 0.2 - 1.2 mg/dL [facility]OLOGY AND GENOMIC MEDICINE Specimen Plasma specimen Performing Organization Address City/State/Zipcode Phone Number [place] [address] [place] [address] PATHOLOGY AND GENOMIC MEDICINE * Miscellaneous Lab Result (08/08/2017) Specimen Blood Narrative Performed At after 06/18/2017 Insurance Payer Benefit Subscriber ID Type Phone Address Plan / Group [employer] MEDICARE AARP xxxxxxxxx O MEDICARE COMPLETE MCR Advance Directives Patient has advance care planning documents on file. For more information, doron griffin contact: Brady Shrestha [address] [place] [address]
--- OUTSIDE RECORDS SUMMARY | 2018-06-19 05:35 | XMS REPORT | Summary of Care ---
Author Author [facility] [place] Organization [facility] [place] Address Unknown Phone Unavailable Encounter HQ Encntr_alidelma(FIN) [id number] Date(s): 01/02/16 - 01/02/16 [facility] [place] [address] [place] [phone] Discharge Disposition: Home or Self Care Attending Physician: Russell Shay MD Vital Signs No data available for this section Problem List No data available for this section Allergies, Adverse Reactions, Alerts No data available for this section Medications No data available for this section Results No data available for this section Immunizations No data available for this section Procedures No data available for this section Social History No data available for this section Assessment and Plan No data available for this section
--- OUTSIDE RECORDS SUMMARY | 2018-06-19 05:35 | XMS REPORT ---
Author Author Admin, [facility] Address [address] [address] Phone Allergies, Adverse Reactions, Alerts Allergy Name Reaction Description Start Date Severity Status Provider No Known Allergies Latonya Jeanmarie PONY RIDE ATTENDANT Conditions or Problems Problem Name Problem Code Onset Date Status Entry Date Provider Comment Standard Description Annotate Plantar fascitis 728.71 Active Nidhi Millard MD Plantar fascial fibromatosis Bone spur of left foot 726.91 Active Annalee Wise MD Exostosis of unspecified site Heel pain, left 729.5 Active Annalee Wise MD Pain in limb Heel pain, unspecified 729.5 Active Annalee Wise MD Pain in limb Irritable bowel syndrome 564.1 Active Jyoti Jj MD Irritable bowel syndrome Abnormal vaginal bleeding 626.9 Active Jyoti Jj MD Unspecified disorders of menstruation and other abnormal bleeding from female genital tract Atrial fibrillation 427.31 Active Jyoti Jj MD Atrial fibrillation DIARRHEA 787.91 Active Jyoti Jj MD Diarrhea VAGINAL DISCHARGE 623.5 Active Jyoti Jj MD Leukorrhea, not specified as infective PALPITATIONS 785.1 Active Jyoti Jj MD Palpitations Chest pain 786.50 Active Jyoti jJ MD Unspecified chest pain DIABETES MELLITUS, TYPE [...] breast prosthesis and implant May 2015 in [place] Revision of breast implants V53.99 Active Ab Barry MD Fitting and adjustment of other device January 28 2015 in [place] Blurred vision 368.8 Active Ab Barry MD [...] unspecified combined vaccine V06.9 Inactive Jessica Paul CERTIFIED SCRUB TECH Need for prophylactic vaccination with unspecified combined vaccine Need for prophylactic vaccination with unspecified combined vaccine ICD-V06.9 Inactive Jessica CÁRDENASN UTI (urinary tract infection) ICD-599.0 Inactive Jyoti Jj MD DIARRHEA ICD-787.91 Inactive Jyoti Jj MD Traveler's diarrhea ICD-009.2 Inactive Jyoit Jj MD Abdominal pain, right lower quadrant [...] Generic Name NDC Status Provider Patient Instruction BLOOD GLUCOSE MONITOR SYSTEM W/DEVICE KIT use to check blood sugar bid BLOOD GLUCOSE MONITORING SUPPL 11919636833 Active Nidhi Millard MD Active MOBIC 15 MG ORAL TABLET 1 by mouth daily MELOXICAM 38676605804 Active Annalee Wise MD Active ALIGN 4 MG ORAL CAPSULE one tablet twice daily PROBIOTIC PRODUCT 48872453607 Active Annalee Wise MD Active ELIQUIS 5 MG ORAL TABLET one tablet two times daily APIXABAN 33076295452 Active Jyoti Jj MD Active [employer] TechnologiesTOOculeve ULTRA 2 W/DEVICE KIT Use as directed to test blood sugar twice daily BLOOD GLUCOSE MONITORING SUPPL 32259132023 Active Irish Feng MedAdherence CERTIFIED SCRUB TECH Active LANCETS Dispense for use in checking fasting blood sugar and 2 hour postprandial bloodsugar three times per day LANCETS 78657893277 Active Jyoti Jj MD Active METFORMIN HCL ER 500 MG ORAL TABLET EXTENDED RELEASE 24 HOUR 2 tablets twice daily METFORMIN HCL 34730833765 Active Jyoti Jj MD Active [employer] BLUE IN VITRO STRIP Use as directed to test blood sugar twice daily GLUCOSE BLOOD 04891297780 Active Irish Feng MedAdherence CERTIFIED SCRUB TECH Active MULTAQ 400 MG ORAL TABLET one tablet twice daily MULTAQ 400 MG ORAL TABLET DRONEDARONE HCL Inactive SOTALOL HCL 160 MG ORAL TABLET one tablet twice daily SOTALOL HCL 160 MG ORAL TABLET 1176175 SOTALOL HCL Inactive POLYTRIM 37784-8.1 UNIT/ML-% OPHTHALMIC SOLUTION 1-2 drops in affected eye every 4 hours for 7 to 10 days POLYTRIM 34807-1.1 UNIT/ML-% OPHTHALMIC SOLUTION 178340 POLYMYXIN B-TRIMETHOPRIM Inactive PREMARIN 0.625 MG/GM VAGINAL CREAM 1 gm PV nightly at bedtime 3 times per week PREMARIN 0.625 MG/GM VAGINAL CREAM ESTROGENS, CONJUGATED VAGINAL Inactive AUGMENTIN 500-125 MG ORAL TABLET 1 by mouth twice a day AUGMENTIN 500-125 MG ORAL TABLET 658310 AMOXICILLIN-POT CLAVULANATE Inactive MONISTAT 3 COMBO PACK MARCELLA 200 & 2 MG-% (9GM) VAGINAL KIT use as directed MONISTAT 3 COMBO PACK MARCELLA 200 & 2 MG-% (9GM) VAGINAL KIT MICONAZOLE NITRATE Inactive BACTRIM DS 800-160 MG ORAL TABLET 1 tab by mouth twice a day BACTRIM DS 800-160 MG ORAL TABLET 19820704 TRIMETHOPRIM-SULFAMETHOXAZOLE Inactive ZOFRAN ODT 4 MG ORAL TABLET DISINTEGRATING Take one tablet every 6 hrs as needed for nausea ZOFRAN ODT 4 MG ORAL TABLET DISINTEGRATING ONDANSETRON Inactive BENTYL 10 MG ORAL CAPSULE 1 by mouth 4 times a day as needed BENTYL 10 MG ORAL CAPSULE DICYCLOMINE HCL Inactive CIPRO 500 MG ORAL TABLET 1 by mouth twice a day for 3 days CIPRO 500 MG ORAL TABLET 519837 CIPROFLOXACIN HCL Inactive BACTRIM DS 800-160 MG ORAL TABLET 1 tab by mouth twice a day BACTRIM DS 800-160 MG ORAL TABLET 19820704 TRIMETHOPRIM-SULFAMETHOXAZOLE Inactive CLEOCIN 300 MG ORAL CAPSULE 1 tab By Mouth Every 6 hour for 14 days for breast infection CLEOCIN 300 MG ORAL CAPSULE 348136 CLINDAMYCIN HCL Inactive MULTAQ 400 MG ORAL TABLET one tablet twice daily DRONEDARONE HCL 42541248919 No Longer Active Nidhi Millard MD Active SOTALOL HCL 160 MG ORAL TABLET one tablet twice daily SOTALOL HCL 45533857361 No Longer Active Jyoti Jj MD Active POLYTRIM 36836-8.1 UNIT/ML-% OPHTHALMIC SOLUTION 1-2 drops in affected eye every 4 hours for 7 to 10 days POLYMYXIN B-TRIMETHOPRIM 15828209111 No Longer Active Jyoti Jj MD Active PREMARIN 0.625 MG/GM VAGINAL CREAM 1 gm PV nightly at bedtime 3 times per week ESTROGENS, CONJUGATED VAGINAL 53702054895 No Longer Active Jyoti Jj MD Active AUGMENTIN 500-125 MG ORAL TABLET 1 by mouth twice a day AMOXICILLIN-POT CLAVULANATE 13013432043 No Longer Active Jyoti Jj MD Active MONISTAT 3 COMBO PACK MARCELLA 200 & 2 MG-% (9GM) VAGINAL KIT use as directed MICONAZOLE NITRATE 42695532415 No Longer Active Jyoti Jj MD Active BACTRIM DS 800-160 MG ORAL TABLET 1 tab by mouth twice a day TRIMETHOPRIM-SULFAMETHOXAZOLE 08150994297 No Longer Active Annalee Wise MD Active ZOFRAN ODT 4 MG ORAL TABLET DISINTEGRATING Take one tablet every 6 hrs as needed for nausea ONDANSETRON 19052147969 No Longer Active Jyoti Jj MD Active BENTYL 10 MG ORAL CAPSULE 1 by mouth 4 times a day as needed DICYCLOMINE HCL 33827506509 No Longer Active Jyoti Jj MD Active CIPRO 500 MG ORAL TABLET 1 by mouth twice a day for 3 days CIPROFLOXACIN HCL 09155171577 No Longer Active Jyoti Jj MD Active BACTRIM DS 800-160 MG ORAL TABLET 1 tab by mouth twice a day TRIMETHOPRIM-SULFAMETHOXAZOLE 91137861902 No Longer Active Toshia Ramos MD Active CLEOCIN 300 MG ORAL CAPSULE 1 tab By Mouth Every 6 hour for 14 days for breast infection CLINDAMYCIN HCL 29428323682 No Longer Active Toshia Ramos MD Active Immunizations Vaccine Administration Date Value Standard Description influenza immunization (Flu Vax) has been administered given influenza virus vaccine, unspecified formulation PEDIATRIC PNEUMOCOCCAL VACCINE ([id number]) #1 given elsewhere pneumococcal conjugate vaccine, 13 valent hepatitis A immunization #1 given hepatitis A vaccine, unspecified formulation MMR (measles, mumps, rubella) virus immunization #1 given influenza immunization (Flu Vax) has been administered given influenza virus vaccine, unspecified formulation Vital Signs Date Name Value Unit Range Description blood pressure, diastolic, second observation 85 mm[Hg] BP lua blood pressure, diastolic 85 mm[Hg] BP lua blood pressure, systolic, second observation 148 mm[Hg] BP sys blood pressure, systolic 148 mm[Hg] BP sys height E&M 62 [in_us] Bdy height pulse rate E&M 81 /min Heart rate respiratory rate E&M 17 /min Resp rate temperature E&M 98.1 [degF] Body temperature weight E&M 157.80 [lb_av] Weight Measured blood pressure, diastolic 84 mm[Hg] BP lua blood pressure, systolic 160 mm[Hg] BP sys height E&M 62 [in_us] Bdy height pulse rate E&M 69 /min Heart rate respiratory rate E&M 19 /min Resp rate temperature E&M 98 [degF] Body temperature weight E&M 156.44 [lb_av] Weight Measured blood pressure, diastolic 82 mm[Hg] BP lua blood pressure, systolic 150 mm[Hg] BP sys height E&M 62 [in_us] Bdy height pulse rate E&M 80 /min Heart rate respiratory rate E&M 12 /min Resp rate temperature E&M 98.4 [degF] Body temperature weight E&M 157.40 [lb_av] Weight Measured blood pressure, diastolic 76 mm[Hg] BP lua [...] Name Value Unit Range Description Lab Report: [place] Vaginitis Plus (VG+) - Microbiology Neisseria gonorrhoeae [...] culture, salmonella and shigella, stool Final report Internal Correspondence: Pre-Visit Planning - Other List of providers caring for patient May Ramirez Lab Report: Stool Culture, Result, Stool Culture, [...] stool Final report None Seen Office Visit: Acute Visit Dm ROom #9 - Chemistry hemoglobin A1C, blood, as % of total hemoglobin 6.7 % Internal Correspondence: Pre-Visit Planning - CC care steamer blocker #1, name Lianet Acuña Office Visit: Adult Followup///# 5_Gabler - Urinalysis glucose, urine, semiquantitative negative Lab Report: NuSwab Vaginitis Plus (VG+) - Urinalysis trichomonas vaginalis, [...] Negative Negative Office Visit: Acute Visit 10 [facility] - Chemistry blood glucose, random 126 mg/dL Office Visit: Adult Followup///# 5_Gabler - Urinalysis blood in urine (hemoglobin) by dipstick negative appearance, urine clear urobilinogen, urine, semiquantitative (dipstick) negative Lab Report: Stool Culture, Result, Stool Culture, Result, Stool Culture, ... - Serology Clostridium difficile toxin A+B, serum, quantitative Negative Negative Lab Report: URINALYSIS, COMPLETE W/REFLEX TO CULTURE, REFLEXIVE URINE CU ... 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 Est Patient Detailed - 77467 Nidhi Millard MD CPT-96839 [facility] 09:18:29 [employer] DISTRICT LAW CLERK Est Patient Detailed - 75535 Annalee Wise MD CPT-42607 [facility] 12:40:52 [employer] LAW CLERK Ofc Vst, Est Level IV Jyoti Jj MD CPT-91496 [facility] 09:01:28 CDT Est Patient Detailed - 39233 Jyoti Jj MD CPT-48083 [facility] 13:10:19 CDT Est Patient Exp Problem - 38876 Jyoti Jj MD CPT-62242 [facility] 12:38:21 CDT Est Patient Exp Problem - 24096 Jyoti Jj MD CPT-76565 [facility] 13:05:49 CDT Est Patient Detailed - 49756 Jyoti Jj MD CPT-79138 [facility] 11:45:37 CDT Est Patient Exp Problem - 57067 Jyoti Jj MD CPT-59132 [facility] 06:25:41 [employer] LAW CLERK Est Patient Exp Problem - 73630 Kirsten Miranda MD CPT-05092 [facility] 15:33:34 CDT Est Patient Exp Problem - 45506 Mykel Herrera MD CPT-72674 [facility] 17:13:04 CDT Est Patient Exp Problem - 03037 Jyoti Jj MD CPT-17880 [facility] 11:26:32 CDT Est Patient Exp Problem - 44747 Ab Barry MD CPT-13292 [facility] 11:16:28 CDT Est Patient Exp Problem - 38792 Arron Chang MD CPT-28766 [facility] 14:30:05 CDT Est Patient Exp Problem - 62102 Arron Chang MD CPT-74732 [facility] 15:10:34 CDT Est Patient Exp Problem - 25245 Ab Barry MD CPT-83976 [facility] 15:43:57 CDT Est Patient Exp Problem - 15461 Ab Barry MD CPT-57819 [facility] 09:41:48 [employer] LAW CLERK Est Patient Exp Problem - 75104 Ab Barry MD CPT-20543 [facility] 07:24:40 [employer] LAW CLERK Est Patient Exp Problem - 48911 Ab Barry MD CPT-56636 [facility] 15:47:56 CDT Est Patient Exp Problem - 04610 Ab Barry MD CPT-70981 [facility] 16:49:51 CDT Est Patient Exp Problem - 61587 Arron Chang MD CPT-41452 [facility] Procedures Code Procedure Name Date Entry Date Standard Description CPT-56606 HEMOGLOBIN A1C - In House 12:05:17 [employer] LAW CLERK CPT-43865 Urinalysis - Dip only - In House 10:57:08 CDT CPT-12811 [facility]ASLES & RUBELLA VIRUS VACCINE LIVE SUBQ 09:49:07 [employer] LAW CLERK CPT-40298 Hepatitis A - Adult 09:49:07 [employer] LAW CLERK CPT-63744 Admin of Vaccine - Injection - Each Add'l 09:49:07 [employer] LAW CLERK CPT-89234 Admin of Vaccine - Injection - 1 09:49:07 [employer] LAW CLERK CPT-29277 Influenza - Adult - Injection 16:49:51 CDT
--- OUTSIDE RECORDS SUMMARY | 2018-06-19 05:35 | XMS REPORT ---
Author Author Admin, [facility] Address [address] [address] Phone Allergies, Adverse Reactions, Alerts Allergy Name Reaction Description Start Date Severity Status Provider No Known Allergies Latonya Murry COLOR TELEVISION CONSOLE MONITOR Conditions or Problems Problem Name Problem Code [...] MD Mastodynia Cellulitis, breast 611.0 Active Ab aBrry MD Inflammatory disease of breast Left, secondary to surgery Hx of removal of breast implants V52.4 Active Ab Barry MD Fitting and adjustment of breast prosthesis and implant May 2015 in [place] Revision of breast implants V53.99 Active Ab Barry MD Fitting and adjustment of other device January 28 2015 in [place] Blurred vision 368.8 Active Ab Barry MD [...] unspecified combined vaccine V06.9 Inactive Jessica Paul PHOTORESIST 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 Need for prophylactic vaccination with unspecified combined vaccine Need for prophylactic vaccination with unspecified combined vaccine ICD-V06.9 Inactive Jessica CÁRDENASN UTI (urinary tract infection) ICD-599.0 Inactive Jyoti Jj MD DIARRHEA ICD-787.91 Inactive Jyoti Jj MD Traveler's diarrhea ICD-009.2 Inactive Jyoti Jj MD Abdominal pain, right lower [...] blood sugar bid BLOOD GLUCOSE MONITORING SUPPL 33520740660 Active Nidhi Millard MD Active MOBIC 15 MG ORAL TABLET 1 by mouth daily MELOXICAM 60367736470 Active Annalee Wise MD Active ALIGN 4 MG ORAL CAPSULE one tablet twice daily PROBIOTIC PRODUCT 78079428158 Active Annalee Wise MD Active MULTAQ 400 MG ORAL TABLET one tablet twice daily DRONEDARONE HCL 87280522673 Active Nidhi Millard MD Active ELIQUIS 5 MG ORAL TABLET one tablet two times daily APIXABAN 56619003080 Active Jyoti Jj MD Active [employer] ULTRA 2 W/DEVICE KIT Use as directed to test blood sugar twice daily BLOOD GLUCOSE MONITORING SUPPL 77760440014 Active Irish Feng LVN Active LANCETS Dispense for use in checking fasting blood sugar and 2 hour postprandial bloodsugar three times per day LANCETS 69187214954 Active Jyoti Jj MD Active METFORMIN HCL ER 500 MG ORAL TABLET EXTENDED RELEASE 24 HOUR 2 tablets twice daily METFORMIN HCL 86425677979 Active Jyoti Jj MD Active [employer] BLUE IN VITRO STRIP Use as directed to test blood sugar twice daily GLUCOSE BLOOD 45011882102 Active Irish Jung BELLA Active SOTALOL HCL 160 MG ORAL TABLET one tablet twice daily SOTALOL HCL 160 MG ORAL TABLET 3267033 SOTALOL HCL Inactive POLYTRIM 01222-6.1 UNIT/ML-% OPHTHALMIC SOLUTION 1-2 drops in affected eye every 4 hours for 7 to 10 days POLYTRIM 26605-8.1 UNIT/ML-% OPHTHALMIC SOLUTION 486887 POLYMYXIN B-TRIMETHOPRIM Inactive PREMARIN 0.625 MG/GM VAGINAL CREAM 1 gm PV nightly at bedtime 3 times per week PREMARIN 0.625 MG/GM VAGINAL CREAM ESTROGENS, CONJUGATED VAGINAL Inactive AUGMENTIN 500-125 MG ORAL TABLET 1 by mouth twice a day AUGMENTIN 500-125 MG ORAL TABLET 691085 AMOXICILLIN-POT CLAVULANATE Inactive MONISTAT 3 COMBO PACK [...] 3 days CIPRO 500 MG ORAL TABLET 643663 CIPROFLOXACIN HCL Inactive BACTRIM DS 800-160 MG ORAL TABLET 1 tab by mouth twice a day BACTRIM DS 800-160 MG ORAL TABLET 095921 TRIMETHOPRIM-SULFAMETHOXAZOLE Inactive CLEOCIN 300 MG ORAL CAPSULE 1 tab By Mouth Every 6 hour for 14 days for breast infection CLEOCIN 300 MG ORAL CAPSULE 968318 CLINDAMYCIN HCL Inactive SOTALOL HCL 160 MG ORAL TABLET one tablet twice daily SOTALOL HCL 05310092152 No Longer Active Jyoti Jj MD Active POLYTRIM 10765-5.1 UNIT/ML-% OPHTHALMIC SOLUTION 1-2 drops in affected eye every 4 hours for 7 to 10 days POLYMYXIN B-TRIMETHOPRIM 45673246704 No Longer Active Jyoti Jj MD Active PREMARIN 0.625 MG/GM VAGINAL CREAM 1 gm PV nightly at bedtime 3 times per week ESTROGENS, CONJUGATED VAGINAL 29527220621 No Longer Active Jyoti Jj MD Active AUGMENTIN 500-125 MG ORAL TABLET 1 by mouth twice a day AMOXICILLIN-POT CLAVULANATE 38358293070 No Longer Active Jyoti Jj MD Active MONISTAT 3 COMBO PACK MARCELLA 200 & 2 MG-% (9GM) VAGINAL KIT use as directed MICONAZOLE NITRATE 62465133050 No Longer Active Jyoti Jj MD Active BACTRIM DS 800-160 MG ORAL TABLET 1 tab by mouth twice a day TRIMETHOPRIM-SULFAMETHOXAZOLE 59107402201 No Longer Active Annalee Wise MD Active ZOFRAN ODT 4 MG ORAL TABLET DISINTEGRATING Take one tablet every 6 hrs as needed for nausea ONDANSETRON 62938171579 No Longer Active Jyoti Jj MD Active BENTYL 10 MG ORAL CAPSULE 1 by mouth 4 times a day as needed DICYCLOMINE HCL 77825896605 No Longer Active Jyoti Jj MD Active CIPRO 500 MG ORAL TABLET 1 by mouth twice a day for 3 days CIPROFLOXACIN HCL 50455218250 No Longer Active Jyoti Jj MD Active BACTRIM DS 800-160 MG ORAL TABLET 1 tab by mouth twice a day TRIMETHOPRIM-SULFAMETHOXAZOLE 48719796781 No Longer Active Toshia Ramos MD Active CLEOCIN 300 MG ORAL CAPSULE 1 tab By Mouth Every 6 hour for 14 days for breast infection CLINDAMYCIN HCL 45232398101 No Longer Active Toshia Ramos MD Active Immunizations Vaccine Administration Date Value Standard Description influenza immunization (Flu Vax) has been administered given influenza virus vaccine, unspecified formulation PEDIATRIC PNEUMOCOCCAL VACCINE ([id number]) #1 given elsewhere pneumococcal conjugate vaccine, 13 [...] Name Value Unit Range Description Lab Report: Nuab Vaginitis Plus (VG+) - Microbiology Neisseria gonorrhoeae [...] /HPF {Cells}/[HPF] < OR=5 Office Visit: Adult Followup///RM# 5_Ruben - Urinalysis protein, urine, semiquantitative (dipstick) negative Lab Report: URINALYSIS, COMPLETE W/REFLEX TO CULTURE, REFLEXIVE URINE CU ... - Chemistry RBC, Urine 0-2 /HPF /[HPF] < OR=2 Office Visit: Adult Followup///RM# 5_Gabler - Urinalysis leukocyte esterase, urine, by dipstick negative Lab Report: URINALYSIS, COMPLETE W/REFLEX TO CULTURE, REFLEXIVE URINE CU ... - Urinalysis bacteria, urine microscopy MODERATE NONE SEEN specific gravity, urine 1.021 1.001-1.035 Office Visit: Adult Followup///RM# 5_Gabler - Urinalysis nitrite, urine, semiquantitative negative urine color yellow bilirubin, urine negative Lab Report: Stool Culture, Result, Stool Culture, Result, Stool Culture, ... 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 - Serology Clostridium difficile toxin A+B, serum, quantitative Negative Negative Lab Report: URINALYSIS, COMPLETE W/REFLEX TO CULTURE, REFLEXIVE URINE CU ... 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 09:01:28 CDT Est Patient Detailed - 43176 Jyoti Jj MD CPT-71508 [facility] 13:10:19 CDT Est Patient Exp Problem - 97143 Jyoti Jj MD CPT-25353 [facility] 12:38:21 CDT Est Patient Exp Problem - 30182 Jyoti Jj MD CPT-94499 [facility] 13:05:49 CDT Est Patient Detailed - 48698 Jyoti Jj MD CPT-32499 [facility] 11:45:37 CDT Est Patient Exp Problem - 36398 Jyoti Jj MD CPT-11933 [facility] 06:25:41 PETROLEUM LABORATORY TECHNICIAN Est Patient Exp Problem - 00684 Kirsten Miranda MD CPT-95439 [facility] 15:33:34 CDT Est Patient Exp Problem - 89949 Mykel Herrera MD CPT-67459 [facility] 17:13:04 CDT Est Patient Exp Problem - 00959 Jyoti Jj MD CPT-99410 [facility] 11:26:32 CDT Est Patient Exp Problem - 00621 Ab Barry MD CPT-37690 [facility] 11:16:28 CDT Est Patient Exp Problem - 76932 Arron Chang MD CPT-57237 [facility] 14:30:05 CDT Est Patient Exp Problem - 31574 Arron Chang MD CPT-50960 [facility] 15:10:34 CDT Est Patient Exp Problem - 33329 Ab Barry MD CPT-34928 [facility] 15:43:57 CDT Est Patient Exp Problem - 08921 Ab Barry MD CPT-58813 [facility] 09:41:48 PETROLEUM LABORATORY TECHNICIAN Est Patient Exp Problem - 43651 Ab Barry MD CPT-31472 [facility] 07:24:40 PETROLEUM LABORATORY TECHNICIAN Est Patient Exp Problem - 11982 Ab Barry MD CPT-79835 [facility] 15:47:56 CDT Est Patient Exp Problem - 07956 Ab Barry MD CPT-03437 [facility] 16:49:51 CDT Est Patient Exp Problem - 63395 Arron Chang MD CPT-57946 [facility] Procedures Code Procedure Name Date Entry Date Standard Description CPT-80384 HEMOGLOBIN A1C - In House 12:05:17 PETROLEUM LABORATORY TECHNICIAN CPT-81529 Urinalysis - Dip only - In House 10:57:08 CDT CPT-80900 MEASLES & RUBELLA VIRUS VACCINE LIVE SUBQ 09:49:07 PETROLEUM LABORATORY TECHNICIAN CPT-76588 Hepatitis A - Adult 09:49:07 PETROLEUM LABORATORY TECHNICIAN CPT-98387 Admin of Vaccine - Injection - Each Add'l 09:49:07 PETROLEUM LABORATORY TECHNICIAN CPT-23564 Admin of Vaccine - Injection - 1 09:49:07 PETROLEUM LABORATORY TECHNICIAN [facility]-64676 Influenza - Adult - Injection 16:49:51 CDT
[2018-06-19 08:45] VITALS: BP 165/82
--- NOTE | 2018-06-19 11:51 | Operative Report ---
DATE OF PROCEDURE: June 19, 2018 SURGEON: Debra Mak DPM SUPPLY CHAIN DESIGN MANAGER SURGEON: Yokasta Larsen DPM PREOPERATIVE DIAGNOSIS: Heel spur, left. POSTOPERATIVE DIAGNOSIS: Heel spur, left. OPERATIVE PROCEDURES: Excision of heel spur, left foot. DETAILS OF PROCEDURE: The patient was placed on the OR table in the supine position. The left lower extremity was prepped and draped in the usual manner. A general anesthetic was administered and hemostasis accomplished using a pneumatic cuff set at 350 mmHg at thigh level. An incision approximately 4 cm in length was made on the medial aspect of the left heel. The incision was deepened, exposing the plantar fascia. The plantar fascia was then released from the plantar aspect of the calcaneus. This exposed the heel spur, which was then removed with an osteotome and a mallet, and was smoothed with a hand rasp. The wound was then flushed with sterile saline solution. A size 7 TLS drain was inserted into the wound. Subcutaneous tissue closed with 3-0 Vicryl and the skin with 4-0 nylon. Following the procedure, 13 mL of 0.5% Marcaine and 1 mL of Decadron were injected. A sterile compression dressing was then applied. At this time the pneumatic cuff was released and reflex hyperemia was observed to all digits. The patient tolerated the procedures and the anesthesia well and left the OR to recovery in good condition with vital signs stable. Job#: [id number] TA MTDD
== END | disposition home or self-care (01) ==
LOC: OR 05:00
PROVIDERS: ATTEND Podiatrist Foot & Ankle Surgery
DX: M77.32 Calcaneal spur, left foot (principal); E11.9 Type 2 diabetes mellitus without complications; I48.91 Unspecified atrial fibrillation; Z91.040 Latex allergy status; Z79.84 Long term (current) use of oral hypoglycemic drugs; Z01.812 Encounter for preprocedural laboratory examination; Z01.811 Encounter for preprocedural respiratory examination
CPT/HCPCS: 28119; 36415 ×2; 71046; 80048; 82948; 85025; 85610; 85730; J0690; J1100; J2001; J2405; J2704

== ENCOUNTER → 2018-08-15 | Day surgery (SDC) | payer MEDICARE ==
[~2018-08-15] VITALS: Ht 157.5 cm; Wt 69.9 kg
[~2018-08-15] MED LIST changes: -B COMPLEX1 EACH; +B COMPLEX1 EACH PO; -BUPIVACAINE 0.25% 30ML SDV INJ ONE; -CEFAZOLIN SOD 1 GM/NS 50ML 50 ML IV ONE; -DEXAMETHASONE SOD PHOS INJ 4 MG/ML VIAL ONE; -FENTANYL CITRATE/PF 100MCG/2 ML INJ ONE; +LIDOCAINE 1% W/EPINEPHRINE 20 ML VIAL ONE; -LIDOCAINE HCL 2% LOCAL INJ 5 ML SDV VIAL INJ ONE; +OMEGA 3 1,0001 EACH PO; -ONDANSETRON HCL INJ 2MG/ML 2ML 2 MG/ML VIAL ONE; -PROPOFOL IV EMULSION 10 MG/ML 20 ML VIAL ONE; -SEVOFLURANE INHAL SOLN 250 ML PEN BTL ONE; -VITAMIN C500 M3; +VITAMIN C500 M3 PO
[2018-08-15 07:00] VITALS: BP 158/74
--- OUTSIDE RECORDS SUMMARY | 2018-08-15 07:08 | XMS REPORT | Clinical Summary ---
Author Author [facility] Organization [facility] Address Unknown Phone Unavailable Care Team Providers Care Hot Walker Name Role Phone Kirsten Miranda MD PCP [...] Type 2 diabetes mellitus with complication, unspecified intermediate insulin use status; Pure hypercholesterolemia; History of [...] Type 2 diabetes mellitus with complication, unspecified intermediate insulin use status; Pure hypercholesterolemia; History of partial colectomy 10/20/2017 Office Visit Cardiology Louisa Ventura DO Heart palpitations (Primary Dx) 10/17/2017 Emergency Emergency Medicine after 08/14/2017 Immunizations Name Dates Previously Given Next Due [...] 08/22/1997 COLON CANCER SCREENING 08/22/1997 SHINGLES VACCINES (#1) 08/22/1997 65+ PNEUMOCOCCAL VACCINE 08/22/2012 (1 of 2 - PCV13) PNEUMOCOCCAL 08/22/2012 POLYSACCHARIDE VACCINE AGE 65 AND OVER INFLUENZA VACCINE 11/30/2018 01/17/2018 Procedures Comments Procedure Name Priority Date/Time Associated Diagnosis ECG 12-LEAD Routine 01/16/2018 Atrial fibrillation, 10:07 AM CDT unspecified type (HCC) ECHOCARDIOGRAM 2D Routine 10/27/2017 Palpitations COMPLETE W MMODE SPECTRAL 1:58 PM CDT COLOR DOPPLER ([id number]) CARDIOVASCULAR REPORT Routine 10/25/2017 12:54 PM CDT [...] 12:36 PM CDT ECG 12-LEAD Routine 10/17/2017 after 08/14/2017 Results * ECG 12 lead (01/16/2018 10:07 AM CDT) Only the most recent of 3 results within the time period is included. Ventricular rate 55 [facility] Atrial rate 55 [facility] SD interval 172 [facility] QRSD interval 96 [facility] QT interval 450 [facility] QTC interval 430 [facility] P axis 1 46 [facility] QRS axis 1 72 [facility] T wave axis 43 [facility] EKG impression Sinus bradycardia-Anterior [facility] infarct , age undetermined-Abnormal ECG-In automated comparison with ECG of 17-OCT-2017 12:36,-Questionable change in QRS axis- Performing Organization Address City/State/Zipcode Phone Number [facility] [address] [place] [address] * Echocardiogram complete w contrast and 3D [...] LV EF,BP 57.81 % [facility] [place],d A2C 6.42 cm [facility] [place],d A4C 7.16 cm [facility] [place],s A2C 5.74 cm [facility] [place],s A4C 5.91 cm [facility] LV,s 2.10 [...] [facility] AoV area i VTI [place] 1.35 cm2/m2 [facility] LV SI MOD BP [place] 17.13 ml/m2 [facility] LV Vol Index s bpmod BSA 29.63 ml/m2 [facility] [place] PV Vmn 12.50 m/s [facility] BMI [...] Address City/State/Zipcode Phone Number [facility] [address] [place] [address] * Cardiovascular Report (10/25/2017 12:54 PM CDT) Interpretation NoteComment: Supplemental [facility] report is available. Narrative Performed At Performed at:01 - [employer] [facility] [address], [id number] Employee Adviser: Mendel Coelho MD, Phone:[phone] Performing Organization Address City/State/Zipcode Phone Number [facility] * Thyroid stimulating hormone (10/25/2017 12:54 PM CDT) TSH 2.300 0.450 - 4.500 uIU/mL [facility] Specimen Blood Narrative Performed At Performed at:01 - [facility] [address] [place], [id number] Employee Adviser: Xander Shannon MD, Phone:[phone] Performing Organization Address [facility] Phone Number [facility] * Lipid panel (10/25/2017 [...] Narrative Performed At Performed at:01 - [facility] [place], [id number] Employee Adviser: Xander Shannon MD, Phone:[phone] Performing Organization Address [facility] Phone Number [facility] * CV Holter monitor greater than 48 hours (10/25/2017) Narrative Performed At * ECG ED Preliminary Interpretation - NOT AN ORDER (10/17/2017 3:15 PM CDT) Narrative Performed At Louisa Ventura DO 10/17/20178:08 PM ECG ED Preliminary Interpretation - Not an Order Performed by: LOUISA VENTURA Authorized by: LOUISA VENTURA ECG reviewed by ED Physician in the absence of a associate genetics professor: yes Interpretation: Interpretation: normal Rate: ECG rate:71 [...] structures are intact with mild degenerative changes. [facility]-[id number] Procedure Note Hm Interface, Radiology Results Incoming - 10/17/2017 2:44 PM CDT EXAMINATION: XR CHEST 1 VW PORTABLE CLINICAL HISTORY: Chest Pain COMPARISON: 04/21/2012 IMPRESSION: Mild cardiomegaly. Lungs are clear without infiltrate, consolidation, pleural effusion or pneumothorax. Osseous structures are intact with mild degenerative changes. [facility]-[id number] Performing Organization Address City/State/Zipcode Phone Number [facility] [address] [place] [address] * Estimated GFR (10/17/2017 1:10 PM CDT) GFR Non Af Amer 83 mL/min/1.73 m2 [facility] DEPARTMENT OF PATHOLOGY AND GENOMIC MEDICINE GFR Af Amer >90 mL/min/1.73 m2 [facility] DEPARTMENT OF Comment: PATHOLOGY AND Chronic kidney [...] Americans. Specimen Plasma specimen Performing Organization Address [facility] Phone Number [facility] [address] [place] [address] PATHOLOGY AND GENOMIC MEDICINE * Troponin (10/17/2017 1:10 PM CDT) Troponin <0.01 0.00 - 0.60 ng/mL [facility] DEPARTMENT OF Comment: PATHOLOGY AND 0.11 - 1.49 GENOMIC MEDICINE ng/mlMay indicate increased risk of acute coronary syndrome. >=1.5 ng/ml Consistent with acute myocardial infarction. The diagnostic value of a single normal or non-diagnostic result is questionable.Serial samples at 2-6 hour intervals are required to rule out acute myocardial injury. Specimen Plasma specimen Performing Organization Address [facility]/Zipcode Phone Number [place] [phone] [place] [address] PATHOLOGY AND GENOMIC MEDICINE * CBC with platelet and differential (10/17/2017 1:10 PM CDT) WBC 6.3 4.2 - 11.0 k/uL [facility] DEPARTMENT OF PATHOLOGY AND GENOMIC MEDICINE RBC 4.73 4.04 - 5.86 m/uL [facility] DEPARTMENT OF PATHOLOGY AND GENOMIC MEDICINE HGB 14.4 11.5 - 15.3 g/dL [facility] DEPARTMENT OF PATHOLOGY AND GENOMIC MEDICINE HCT 44.9 34.0 - 45.0 % [facility] DEPARTMENT OF PATHOLOGY AND GENOMIC MEDICINE MCV 94.9 80.0 - 98.0 fL [facility] DEPARTMENT OF PATHOLOGY AND GENOMIC MEDICINE MCH 30.4 27.0 - 34.0 pg [facility] DEPARTMENT OF PATHOLOGY AND GENOMIC MEDICINE MCHC 32.1 31.5 - 36.5 g/dL [facility] DEPARTMENT OF PATHOLOGY AND GENOMIC MEDICINE RDW - SD 45.3 37.0 - 51.0 fL [facility] DEPARTMENT OF PATHOLOGY AND GENOMIC MEDICINE MPV 10.3 7.4 - 10.4 fL [facility] DEPARTMENT OF PATHOLOGY AND GENOMIC MEDICINE Platelet count 273 150 - 400 k/uL [facility] DEPARTMENT OF PATHOLOGY AND GENOMIC MEDICINE Nucleated RBC 0.00 /100 WBC [facility] DEPARTMENT OF PATHOLOGY AND GENOMIC MEDICINE Neutrophils 54.4 36.0 - 66.0 % [facility] DEPARTMENT OF PATHOLOGY AND GENOMIC MEDICINE Lymphocytes 31.2 24.0 - 44.0 % [facility] DEPARTMENT OF PATHOLOGY AND GENOMIC MEDICINE Monocytes 7.4 (H) 0.0 - 6.0 % [facility] DEPARTMENT OF PATHOLOGY AND GENOMIC MEDICINE Eosinophils 6.0 0.0 - 6.0 % [facility] DEPARTMENT OF PATHOLOGY AND GENOMIC MEDICINE Basophils 0.8 0.0 - 1.2 % [facility] DEPARTMENT OF PATHOLOGY AND GENOMIC MEDICINE Immature granulocytes 0.2 0.0 - 1.0 % [facility] DEPARTMENT OF PATHOLOGY AND GENOMIC MEDICINE Specimen Blood Performing Organization Address City/[facility]/Zipcode Phone Number [place] [address] [place] [address] PATHOLOGY AND GENOMIC MEDICINE * B natriuretic peptide (10/17/2017 1:10 PM CDT) BNP 32 0 - 100 pg/mL [facility] DEPARTMENT OF PATHOLOGY AND GENOMIC MEDICINE Specimen Blood Performing Organization Address City/[facility]/Zipcode Phone Number [place] [address] [place] [address] PATHOLOGY AND GENOMIC MEDICINE * Comprehensive metabolic panel (10/17/2017 1:10 PM CDT) Sodium 141 135 - 150 mEq/L [facility] DEPARTMENT OF PATHOLOGY AND GENOMIC MEDICINE Potassium 4.8 3.5 - 5.0 mEq/L [facility] DEPARTMENT OF PATHOLOGY AND GENOMIC MEDICINE Chloride 104 100 - 109 mEq/L [facility] DEPARTMENT OF PATHOLOGY AND GENOMIC MEDICINE CO2 28 24 - 32 mmol/L [facility] DEPARTMENT OF PATHOLOGY AND GENOMIC MEDICINE Anion gap 9@ANIO 7 - 15 mEq/L [facility] DEPARTMENT OF PATHOLOGY AND GENOMIC MEDICINE BUN 9 7 - 18 mg/dL [facility] DEPARTMENT OF PATHOLOGY AND GENOMIC MEDICINE Creatinine 0.7 (L) 0.8 - 1.5 mg/dL [facility] DEPARTMENT OF PATHOLOGY AND GENOMIC MEDICINE Glucose 115 (H) 65 - 100 mg/dL [facility] DEPARTMENT OF PATHOLOGY AND GENOMIC MEDICINE Calcium 9.6 8.6 - 10.7 mg/dL [facility] DEPARTMENT OF PATHOLOGY AND GENOMIC MEDICINE Protein 8.3 (H) 6.3 - 8.2 g/dL [facility] DEPARTMENT OF PATHOLOGY AND GENOMIC MEDICINE Albumin 4.4 3.2 - 5.0 g/dL [facility] DEPARTMENT OF PATHOLOGY AND GENOMIC MEDICINE A/G ratio 1.1 0.7 - 3.8 [facility] DEPARTMENT OF PATHOLOGY AND GENOMIC MEDICINE Alkaline phosphatase 67 30 - 120 U/L [facility] DEPARTMENT OF PATHOLOGY AND GENOMIC MEDICINE AST 16 15 - 37 U/L [facility] DEPARTMENT OF PATHOLOGY AND GENOMIC MEDICINE ALT 37 30 - 65 U/L [facility] DEPARTMENT OF PATHOLOGY AND GENOMIC MEDICINE Total bilirubin 0.3 0.2 - 1.2 mg/dL [facility] DEPARTMENT OF PATHOLOGY AND GENOMIC MEDICINE Specimen Plasma specimen Performing Organization Address City/State/Zipcode Phone Number [place] [address] [place] [address] PATHOLOGY AND GENOMIC MEDICINE after 08/14/2017 Insurance Payer Benefit Subscriber ID Type Phone Address Plan / Group [facility] MEDICARE AARP xxxxxxxxx O MEDICARE COMPLETE MCR Advance Directives Patient has advance care planning documents on file. For more information, doron griffin contact: Brady Shrestha [address] [place] [address]
--- NOTE | 2018-08-15 08:00 | NUR ---
Patient brought back to [facility] for Linq implant. VSS and denies pain or nausea. Loop recorder pre-programmed as per protocol. Physician arrived for procedure. Time out done with all participating staff and all verbalize agreement of appropriate and correct procedure. Patient prepped and draped in a sterile fashion. Lidocaine 10mL injected subcutaneously by Dr Sands. Incision made once it was determined by physician that the area was numb. Loop recorder deployed successfully without issues. Pressure applied until hemostasis and Dermabond applied by Phil Ramirez. Wound dressed in Telfa and tegaderm in a sterile fashion. Patient tolerated procedure well. Discharge instructions gone over with patient and and verbalized 100% understanding. Device programmed as well as bedside monitor. Patient and family deny any further questions. Copy of signed discharge instructions given to patient.
--- NOTE | 2018-08-15 10:57 | Operative Report ---
DATE OF PROCEDURE: 08/15/2018 SURGEON: Yair Sands MD REPORT TITLE: Cardiac Valve Inserter Procedure. INDICATION: Atrial fibrillation. Prior ablation with palpitations. PROCEDURES PERFORMED: Insertable loop recorder. COMPLICATIONS: None. RECOMMENDATIONS: Remote monitoring. DESCRIPTION OF PROCEDURE: Left anterior chest was anesthetized using subcutaneous lidocaine. A [employer] LINQ was inserted without complication. Skin approximated using Dermabond. The patient discharged home. Yair Sands MD [facility]/MOD[facility] /[id number]
== END | disposition home or self-care (01) ==
LOC: CATH LAB 07:06
PROVIDERS: ATTEND Internal Medicine Interventional Cardiology
DX: I48.0 Paroxysmal atrial fibrillation (principal); E11.9 Type 2 diabetes mellitus without complications; Z79.02 Long term (current) use of antithrombotics/antiplatelets; Z79.84 Long term (current) use of oral hypoglycemic drugs; Z98.890 Other specified postprocedural states
CPT/HCPCS: 33285; C1764

== ENCOUNTER → 2020-05-01 | Outpatient (CLI) | payer OTHER ==
[~2020-05-01] MED LIST changes: +COVID-19 VACC, MRNA(MODERNA)/PF 100 MCG/0.5 ML VIAL IM ONE; -LIDOCAINE 1% W/EPINEPHRINE 20 ML VIAL ONE
== END ==
LOC: VACCPMC 17:30
DX: Z23 Encounter for immunization (principal); Z20.828 Contact with and (suspected) exposure to other viral communicable diseases

== ENCOUNTER → 2020-06-04 | Outpatient (CLI) | payer OTHER | END | DRG 951 | LOC: VACCPMC 09:22 | DX: Z23 Encounter for immunization (principal); Z20.822 Contact with and (suspected) exposure to COVID-19 | CPT/HCPCS: 0012A; 91301 ==

== ENCOUNTER 2020-07-14 20:42 | Emergency (ER) | payer MEDICARE ==
[~2020-07-14] VITALS: Ht 157.5 cm; Wt 65.3 kg
[~2020-07-14 20:42] MED LIST changes: -COVID-19 VACC, MRNA(MODERNA)/PF 100 MCG/0.5 ML VIAL IM ONE
[2020-07-14] MEDS ORDERED: FENTANYL CITRATE/PF 100MCG/2 ML INJ IV ONE (21:00)
[2020-07-14 21:16] LABS: CLARITY,URINE CLEAR (CLEAR); COLOR,URINE YELLOW (YELLOW); KETONES,URINE NEGATIVE (NEGATIVE); LEUKOCYTE ESTERASE ,URINE TRACE (NEGATIVE); NITRITE,URINE NEGATIVE (NEGATIVE); PROTEIN,URINE DIPSTICK NEGATIVE (NEGATIVE); URINE UROBILINOGEN 0.2 mg/dL (0.2 - 1)
[2020-07-14 21:17] LABS: BASOPHILS % 0.6 % (0.0-1.0); EOSINOPHILS # (AUTO) 0.3 (0.0-0.4); EOSINOPHILS % 3.8 % (0.0-6.0); HEMOGLOBIN 13.3 g/dL (12.0-16.0); LYMPHOCYTES # (AUTO) 2.4 (1.0-3.2); LYMPHOCYTES % 35.6 % (18.0-39.1); MEAN CORPUSCULAR HGB CONC 33.3 g/dL (31-35); MEAN CORPUSCULAR VOLUME 90.3 fL (81-99); MONOCYTES # (AUTO) 0.5 (0.2-0.8); MONOCYTES % 7.9 % (4.4-11.3); NEUTROPHILS # (AUTO) 3.4 (2.1-6.9); NEUTROPHILS % 51.8 % (38.7-80.0); PLATELET COUNT 293 x10e3/uL (140-360); RED BLOOD COUNT 4.43 x10e6/uL (3.6-5.1); RED CELL DISTRIBUTION WIDTH 12.5 % (11.7-14.4)
[2020-07-14 21:26] LABS: EPITHELIAL CELLS,URINE RARE /LPF; WBC,URINE (MAN) 0-5 /HPF (0-5)
[2020-07-14 21:28] LABS: ALANINE AMINOTRANSFERASE 17 IU/L (0-55); ALBUMIN 4.1 g/dL (3.5-5.0); ALBUMIN/GLOBULIN RATIO 1.1 (0.8-2.0); ALKALINE PHOSPHATASE 59 IU/L (40-150); ANION GAP 14.9 mmol/L (8-16); BLOOD UREA NITROGEN 20 mg/dL (7-26); BUN/CREATININE RATIO 24 (6-25); CALCIUM 9.2 mg/dL (8.4-10.2); CARBON DIOXIDE 24 mmol/L (22-29); CHLORIDE 104 mmol/L (98-107); CREATININE, SERUM 0.84 mg/dL (0.57-1.11); EST GLOMERULAR FILTRATION RATE > 60 ML/MIN (60-); GLUCOSE 150 mg/dL (74-118); POTASSIUM 3.9 mmol/L (3.5-5.1); SODIUM 139 mmol/L (136-145)
[2020-07-14] MEDS ORDERED: ULTRAM50 MG PO (22:55)
[2020-07-14 23:06] VITALS: BP 149/67
== END 2020-07-14 23:13 | disposition home or self-care (01) ==
LOC: ER 20:45
DX: M54.5 Low back pain (principal); N20.1 Calculus of ureter; K57.90 Diverticulosis of intestine, part unspecified, without perforation or abscess without bleeding; R16.0 Hepatomegaly, not elsewhere classified; R94.31 Abnormal electrocardiogram [ECG] [EKG]
CPT/HCPCS: 36415; 74176; 80053; 81001; 84484; 85025; 87086; 93005; 99284; J3010

== ENCOUNTER → 2020-09-12 | Outpatient (CLI) | payer MEDICARE ==
[~2020-09-12] MED LIST changes: +ULTRAM50 MG PO
== END ==
LOC: LAB 09:19
PROVIDERS: ATTEND Internal Medicine
DX: E11.9 Type 2 diabetes mellitus without complications (principal); E23.7 Disorder of pituitary gland, unspecified
CPT/HCPCS: 82024; 82533; 82627; 82670

== ENCOUNTER → 2021-04-27 | Outpatient (CLI) | payer MEDICARE | LOC: DX 08:38 | PROVIDERS: ATTEND Internal Medicine | DX: M85.88 Other specified disorders of bone density and structure, other site (principal) | CPT/HCPCS: 77080 ==

== ENCOUNTER → 2021-09-14 | Outpatient (CLI) | payer MEDICARE | LOC: NM 10:27 | PROVIDERS: ATTEND Internal Medicine | DX: E21.0 Primary hyperparathyroidism (principal) | CPT/HCPCS: 78071; A9512 ==

== ENCOUNTER 2021-11-27 16:33 | Emergency (ER) | payer MEDICARE ==
[~2021-11-27] VITALS: Ht 157.5 cm; Wt 77.1 kg
[2021-11-27] MEDS ORDERED: BEBTELOVIMAB 175 MG INJ IV ONE (18:45)
[2021-11-27 21:18] VITALS: BP 141/66
== END 2021-11-27 21:10 | disposition home or self-care (01) ==
LOC: ER 16:39
DX: M25.561 Pain in right knee (principal); M17.11 Unilateral primary osteoarthritis, right knee; U07.1 COVID-19; I10 Essential (primary) hypertension; E11.9 Type 2 diabetes mellitus without complications
CPT/HCPCS: 73562; 93971; 99283; U0002

== ENCOUNTER → 2022-08-11 | Outpatient (CLI) | payer MEDICARE | LOC: MRI 12:54 | PROVIDERS: ATTEND Internal Medicine Interventional Cardiology | DX: G45.9 Transient cerebral ischemic attack, unspecified (principal) | CPT/HCPCS: 70551 ==